=== PATIENT | female | born 1950 | race Caucasian/White ===

== ENCOUNTER 2017-06-18 13:15 | Emergency (ER) | payer MEDICARE ==
[2017-06-18] MEDS: NORCO, ANEXSIA 5/325MG TABLET (HYDROcodone/ACETAMINOPHEN) PO (13:59)
== END 2017-06-18 15:27 | disposition home or self-care (01) ==
LOC: M ED 13:15
DX: S49.001A Unspecified physeal fracture of upper end of humerus, right arm, initial encounter for closed fracture (principal); W19.XXXA Unspecified fall, initial encounter; Y92.89 Other specified places as the place of occurrence of the external cause; J44.9 Chronic obstructive pulmonary disease, unspecified; E03.9 Hypothyroidism, unspecified; F41.9 Anxiety disorder, unspecified; F33.9 Major depressive disorder, recurrent, unspecified; F43.10 Post-traumatic stress disorder, unspecified; J38.00 Paralysis of vocal cords and larynx, unspecified; Z87.820 Personal history of traumatic brain injury; Z88.0 Allergy status to penicillin
CPT/HCPCS: 73060

== ENCOUNTER → 2017-08-07 | Outpatient (REF) | payer MEDICARE, MEDICAID ==
[2017-08-07 14:08] LABS: HEMOGLOBIN 14.2 g/dl (12.0-15.5); MEAN CORPUSCULAR HEMOGLOBIN 31.9 pg (27.0-33.0); MEAN CORPUSCULAR VOLUME 96.6 fl (80.0-96.0); PLATELET COUNT, AUTOMATED 237 10^3/uL (150-450); RED BLOOD COUNT 4.45 10^6/uL (4.00-5.40); RED CELL DISTRIBUTION WIDTH 12.5 % (11.5-14.5)
[2017-08-07 14:44] LABS: ALBUMIN 4.3 GM/DL (3.2-5.2); ALBUMIN/GLOBULIN RATIO 1.23 (1.00-1.93); ALKALINE PHOSPHATASE 105 U/L (45-117); ALT/SGPT 25 U/L (12-78); ANION GAP 10 MEQ/L (8-16); AST/SGOT 16 U/L (7-37); BILIRUBIN,TOTAL 0.3 MG/DL (0.2-1.0); BLOOD UREA NITROGEN 14 MG/DL (7-18); CALCIUM LEVEL 9.3 MG/DL (8.8-10.2); CARBON DIOXIDE LEVEL 31 MEQ/L (21-32); CHLORIDE LEVEL 100 MEQ/L (98-107); CHOLESTEROL LEVEL 138 MG/DL (<200); CHOLESTEROL RISK RATIO 2.338 (<5); CREATININE FOR GFR 0.74 MG/DL (0.55-1.30); GLOMERULAR FILTRATION RATE > 60.0 (>45); GLUCOSE, FASTING 91 MG/DL (70-100); HDL CHOLESTEROL 59 MG/DL (>40); LDL CHOLESTEROL 47.2 MG/DL (<100); NON-HDL-C 79 MG/DL; POTASSIUM SERUM 4.4 MEQ/L (3.5-5.1); SODIUM LEVEL 141 MEQ/L (136-145); TOTAL PROTEIN 7.8 GM/DL (6.4-8.2); TRIGLYCERIDES LEVEL 159 MG/DL (<150)
== END ==
LOC: M SFHCPLAZ 10:36
DX: Z00.00 Encounter for general adult medical examination without abnormal findings (principal); E89.0 Postprocedural hypothyroidism
CPT/HCPCS: 84443

== ENCOUNTER 2018-01-23 23:46 | Emergency (ER) | payer MEDICARE, MEDICAID ==
[2018-01-24] MEDS: NS 1,000 ML IV (00:28)
[2018-01-24 00:42] LABS: ANION GAP 13 MEQ/L (8-16); BLOOD UREA NITROGEN 9 MG/DL (7-18); CALCIUM LEVEL 8.4 MG/DL (8.8-10.2); CARBON DIOXIDE LEVEL 24 MEQ/L (21-32); CHLORIDE LEVEL 110 MEQ/L (98-107); CREATININE FOR GFR 0.88 MG/DL (0.55-1.30); ETHYL ALCOHOL (ETHANOL) 0.277 % (0.000-0.010); GLOMERULAR FILTRATION RATE > 60.0 (>45); GLUCOSE, FASTING 83 MG/DL (70-100); POTASSIUM SERUM 3.6 MEQ/L (3.5-5.1); SODIUM LEVEL 147 MEQ/L (136-145)
[2018-01-24 00:46] LABS: BASO % 0.5 % (0.0-1.0); EOS # 0.2 10^3/uL (0.0-0.50); EOS % 2.8 % (0.0-3.0); HEMATOCRIT 41.7 % (36.0-47.0); HEMOGLOBIN 13.6 g/dl (12.0-15.5); IMMATURE GRANULOCYTE % 0.8 % (0-3.0); LYMPH # 2.7 10^3/uL (1.5-4.5); LYMPH % 44.8 % (24.0-44.0); MEAN CORPUSCULAR HEMOGLOBIN 30.4 pg (27.0-33.0); MEAN CORPUSCULAR HGB CONC 32.6 g/dl (32.0-36.5); MEAN CORPUSCULAR VOLUME 93.3 fl (80.0-96.0); MONO # 0.6 10^3/uL (0.0-0.8); MONO % 10.5 % (0.0-5.0); NEUTROPHILS # 2.4 10^3/uL (1.8-7.7); NEUTROPHILS % 40.6 % (36.0-66.0); PLATELET COUNT, AUTOMATED 264 10^3/uL (150-450); RED BLOOD COUNT 4.47 10^6/uL (4.00-5.40); RED CELL DISTRIBUTION WIDTH 13.2 % (11.5-14.5)
[2018-01-24 00:58] LABS: LACTIC ACID SEPSIS PROTOCOL 4.1 MMOL/L (0.4-2.0)
[2018-01-24 01:05] LABS: VENOUS BASE EXCESS -4.6 (-2.0-2.0); VENOUS HCO3 24.6 MEQ/L (23.0-27.0); VENOUS O2 SATURATION 54.5 % (60.0-80.0); VENOUS PARTIAL PRESSURE CO2 63.3 mmHg (38.0-50.0); VENOUS PARTIAL PRESSURE O2 36.1 mmHg (30.0-50.0); VENOUS PH 7.207 UNITS (7.330-7.430); VENOUS STANDARD HCO3 19.8 MEQ/L; VENOUS TOTAL CO2 26.5 MEQ/L (24.0-28.0)
[2018-01-24] MEDS: NS 500 ML IV (01:28)
[2018-01-24 03:51] LABS: VENOUS PARTIAL PRESSURE CO2 44.2 mmHg (38.0-50.0); VENOUS PH 7.304 UNITS (7.330-7.430); VENOUS TOTAL CO2 22.8 MEQ/L (24.0-28.0)
[2018-01-24 03:52] LABS: VENOUS BASE EXCESS -4.8 (-2.0-2.0); VENOUS HCO3 21.5 MEQ/L (23.0-27.0); VENOUS O2 SATURATION 97.9 % (60.0-80.0)
[2018-01-24 03:53] LABS: VENOUS STANDARD HCO3 20.5 MEQ/L
[2018-01-24 04:22] LABS: LACTIC ACID SEPSIS PROTOCOL 1.9 MMOL/L (0.4-2.0)
== END 2018-01-24 05:16 | disposition home or self-care (01) ==
LOC: M ED 23:46
DX: F10.129 Alcohol abuse with intoxication, unspecified (principal); R09.89 Other specified symptoms and signs involving the circulatory and respiratory systems; Z79.82 Long term (current) use of aspirin; Z79.899 Other long term (current) drug therapy; Z88.0 Allergy status to penicillin
CPT/HCPCS: 71045

== ENCOUNTER → 2018-02-07 | Outpatient (REF) | payer MEDICARE ==
[~2018-02-07] MED LIST: ASPI81TA85 PO; BIMA01SOL OU; CLON0.5T8 PO; FLUO10CA8 PO; HYDR12.55 PO; LEVO100T5 PO; NORCOTAB PO; REST30CA PO
== END ==
LOC: M SFHCPLAZ 14:10
PROVIDERS: ATTEND Nurse Practitioner Adult Health
DX: E89.0 Postprocedural hypothyroidism (principal)
CPT/HCPCS: 36415; 84443; G0463

== ENCOUNTER → 2018-09-19 | Outpatient (REF) | payer MEDICARE ==
[~2018-09-19] MED LIST changes: +CLON0.5T2 PO; -CLON0.5T8 PO; +FISH1000 PO; +FLUO10CA15 PO; -FLUO10CA8 PO; +HYDR-3715 PO; -NORCOTAB PO; +PANT40TA3 PO; +POTA10808 PO; +TIMO0.5S42 OU; +TRUS1SOL OU
== END ==
LOC: M SFHCPLAZ 14:15
PROVIDERS: ATTEND Nurse Practitioner Adult Health
DX: Z00.00 Encounter for general adult medical examination without abnormal findings (principal); E89.0 Postprocedural hypothyroidism; Z53.8 Procedure and treatment not carried out for other reasons

== ENCOUNTER 2018-11-07 09:38 | Day surgery (SDC) | payer MEDICARE ==
[~2018-11-07] VITALS: Ht 177.8 cm; Wt 58.1 kg
[~2018-11-07 09:38] MED LIST changes: -CLON0.5T2 PO; +CLON0.5T8 PO; -FLUO10CA15 PO; +FLUO10CA8 PO; +NS 1,000 ML IV ONE
[2018-11-07] MEDS ORDERED: LIDOCAINE 2% INJ 100 MG/5 ML SDV (FOR ANES.) As Ordered ONE (10:56)
[2018-11-07] MEDS ORDERED: fentaNYL 100 MCG/2 ML INJECTION (J3010) As Ordered ONE (10:56)
[2018-11-07] MEDS ORDERED: PROPOFOL 200 MG/20 ML VIAL As Ordered ONE (10:56)
[2018-11-07] MEDS ORDERED: ePHEDrine SULFATE 25 MG/5 ML(5MG/ML) SYRINGE As Ordered ONE (11:33)
--- NOTE | 2018-11-07 11:40 | ROOR ---
Patient Name: Jared Meza Procedure Date: 11/07/2018 10:53 AM Date of : 1950 Age: 67 Room: [facility] Gender: Female Note Status: Finalized Procedure: Upper GI endoscopy Indications: Suspected esophageal reflux, Follow-up of esophageal reflux, Suspected gastro-esophageal reflux disease Providers: DO Ivett Claudio MD: Brittani WARD NP Requesting Provider: Medicines: Propofol per Anesthesia Complications: No immediate complications. Procedure: Pre-Anesthesia Assessment: - Prior to the procedure, a History and Physical was performed, and patient medications and allergies were reviewed. The patient is competent. The risks and benefits of the procedure and the sedation options and risks were discussed with the patient. All questions were answered and informed consent was obtained. Patient identification and proposed procedure were verified by the physician, the nurse, the anesthesiologist and the vein access technician in the endoscopy suite. Mental Status Examination: alert and oriented. Airway Examination: normal oropharyngeal airway and neck mobility. Respiratory Examination: clear to auscultation. CV Examination: normal. Prophylactic Antibiotics: The patient does not require prophylactic antibiotics. Prior Anticoagulants: The patient has taken no previous anticoagulant or antiplatelet agents. ASA Grade Assessment: II - A patient with mild systemic disease. After reviewing the risks and benefits, the patient was deemed in satisfactory condition to undergo the procedure. The anesthesia plan was to use monitored anesthesia care (MAC). Immediately prior to administration of medications, the patient was re-assessed for adequacy to receive sedatives. The heart rate, respiratory rate, oxygen saturations, blood pressure, adequacy of pulmonary ventilation, and response to care were monitored throughout the procedure. The physical status of the patient was re-assessed after the procedure. The Endoscope was introduced through the mouth, and advanced to the third part of duodenum. The upper GI endoscopy was accomplished without difficulty. The patient tolerated the procedure well. Findings: The esophagus was normal. The stomach was normal. The examined duodenum was normal. Biopsy with a cold forceps in the prepyloric region of the stomach was performed for Helicobacter pylori testing. Impression: - Normal esophagus. - Normal stomach. - Normal examined duodenum. Recommendation: - Patient has a contact number available for emergencies. The signs and symptoms of potential delayed complications were discussed with the patient. Return to normal activities tomorrow. Written discharge instructions were provided to the patient. - Telephone my office for pathology results in 1 week. Keith Lee DO 11/07/2018 11:40:05 AM Electronically signed by Keith Lee DO Number of Addenda: 0 Note Initiated On: 11/07/2018 10:53 AM Estimated Blood Loss: Estimated blood loss was minimal. Estimated blood loss was minimal.
--- NOTE | 2018-11-07 11:43 | ROOR ---
Patient Name: Jared Meza Procedure Date: 11/07/2018 10:54 AM Date of : 1950 Age: 67 Room: [facility] Gender: Female Note Status: Finalized Procedure: Colonoscopy Indications: Screening for colorectal malignant neoplasm Providers: DO Ivett Claudio MD: Brittani WARD NP Requesting Provider: Medicines: Propofol per Anesthesia Complications: No immediate complications. Procedure: Pre-Anesthesia Assessment: - Prior to the procedure, a History and Physical was performed, and patient medications and allergies were reviewed. The patient is competent. The risks and benefits of the procedure and the sedation options and risks were discussed with the patient. All questions were answered and informed consent was obtained. Patient identification and proposed procedure were verified by the physician, the nurse, the anesthesiologist and the hydro plant technician in the endoscopy suite. Mental Status Examination: alert and oriented. Airway Examination: normal oropharyngeal airway and neck mobility. Respiratory Examination: clear to auscultation. CV Examination: normal. Prophylactic Antibiotics: The patient does not require prophylactic antibiotics. Prior Anticoagulants: The patient has taken no previous anticoagulant or antiplatelet agents. ASA Grade Assessment: II - A patient with mild systemic disease. After reviewing the risks and benefits, the patient was deemed in satisfactory condition to undergo the procedure. The anesthesia plan was to use monitored anesthesia care (MAC). Immediately prior to administration of medications, the patient was re-assessed for adequacy to receive sedatives. The heart rate, respiratory rate, oxygen saturations, blood pressure, adequacy of pulmonary ventilation, and response to care were monitored throughout the procedure. The physical status of the patient was re-assessed after the procedure. The Colonoscope was introduced through the anus and advanced to the cecum, identified by appendiceal orifice and ileocecal valve. The colonoscopy was performed without difficulty. The patient tolerated the procedure well. Findings: Non-bleeding internal hemorrhoids were found during retroflexion. The hemorrhoids were Grade II (internal hemorrhoids that prolapse but reduce spontaneously). A few small-mouthed diverticula were found in the sigmoid colon. Multiple carpet-like polyps were found in the transverse colon, ascending colon and cecum. The polyps were 3 to 15 mm in size. These polyps were removed with a cold biopsy forceps. Resection was complete, and retrieval was complete. Estimated blood loss was minimal. The exam was otherwise without abnormality on direct and retroflexion views. Impression: - Non-bleeding internal hemorrhoids. - Diverticulosis in the sigmoid colon. - Multiple 3 to 15 mm polyps in the transverse colon, in the ascending colon and in the cecum, removed with a cold biopsy forceps. Resected and retrieved. - The examination was otherwise normal on direct and retroflexion views. Recommendation: - Patient has a contact number available for emergencies. The signs and symptoms of potential delayed complications were discussed with the patient. Return to normal activities tomorrow. Written discharge instructions were provided to the patient. - Repeat colonoscopy in 1 year for surveillance based on pathology results. - Return to my office as previously scheduled. Keith Lee DO 11/07/2018 11:42:57 AM Electronically signed by Keith Lee DO Number of Addenda: 0 Note Initiated On: 11/07/2018 10:54 AM Estimated Blood Loss: Estimated blood loss was minimal.
[2018-11-07 12:14] VITALS: BP 107/57
== END 2018-11-07 12:16 | disposition home or self-care (01) ==
LOC: M OPP 09:38
PROVIDERS: ATTEND Surgery
DX: Z12.11 Encounter for screening for malignant neoplasm of colon (principal); K64.1 Second degree hemorrhoids; K57.30 Diverticulosis of large intestine without perforation or abscess without bleeding; D12.3 Benign neoplasm of transverse colon; D12.2 Benign neoplasm of ascending colon; D12.0 Benign neoplasm of cecum; K29.70 Gastritis, unspecified, without bleeding; K21.9 Gastro-esophageal reflux disease without esophagitis; I10 Essential (primary) hypertension; E03.9 Hypothyroidism, unspecified; K80.20 Calculus of gallbladder without cholecystitis without obstruction; F41.9 Anxiety disorder, unspecified; F32.9 Major depressive disorder, single episode, unspecified; F43.10 Post-traumatic stress disorder, unspecified; Z78.0 Asymptomatic menopausal state; J44.9 Chronic obstructive pulmonary disease, unspecified; Z86.73 Personal history of transient ischemic attack (TIA), and cerebral infarction without residual deficits; Z87.891 Personal history of nicotine dependence; Z88.0 Allergy status to penicillin; Z79.82 Long term (current) use of aspirin; Z79.899 Other long term (current) drug therapy
CPT/HCPCS: 43239; 45380; 88305; J3010

== ENCOUNTER → 2019-08-28 | Outpatient (REF) | payer MEDICARE, MEDICAID ==
[~2019-08-28] MED LIST changes: +CLON0.5T2 PO; -CLON0.5T8 PO; +FLUO10CA15 PO; -FLUO10CA8 PO; -NS 1,000 ML IV ONE
[2019-08-28 13:54] LABS: ALT/SGPT 25 U/L (12-78); BILIRUBIN,TOTAL 0.5 MG/DL (0.2-1.0); BLOOD UREA NITROGEN 12 MG/DL (7-18); CALCIUM LEVEL 9.3 MG/DL (8.8-10.2); CARBON DIOXIDE LEVEL 33 MEQ/L (21-32); CHLORIDE LEVEL 103 MEQ/L (98-107); CHOLESTEROL LEVEL 177 MG/DL (<200); CHOLESTEROL RISK RATIO 2.492 (<5); CREATININE FOR GFR 0.84 MG/DL (0.55-1.30); GLOMERULAR FILTRATION RATE > 60.0 (>39); GLUCOSE, FASTING 75 MG/DL (70-100); HDL CHOLESTEROL 71 MG/DL (>40); LDL CHOLESTEROL 87 MG/DL (<100); NON-HDL-C 106 MG/DL; POTASSIUM SERUM 3.9 MEQ/L (3.5-5.1); SODIUM LEVEL 138 MEQ/L (136-145); THYROID STIMULATING HORMONE 0.052 uIU/ML (0.358-3.740); TOTAL PROTEIN 7.3 GM/DL (6.4-8.2); TRIGLYCERIDES LEVEL 95 MG/DL (<150)
== END ==
LOC: M SFHCPLAZ 09:29
PROVIDERS: ATTEND Nurse Practitioner Adult Health
DX: E89.0 Postprocedural hypothyroidism (principal); K21.9 Gastro-esophageal reflux disease without esophagitis; R05 Cough; Z11.59 Encounter for screening for other viral diseases; Z13.220 Encounter for screening for lipoid disorders
CPT/HCPCS: 36415; 80053; 80061; 84443; U0003

== ENCOUNTER 2019-10-17 03:01 | Emergency (ER) | payer MEDICAID, MEDICARE ==
[~2019-10-17] VITALS: Ht 177.8 cm; Wt 60.9 kg
[~2019-10-17 03:01] MED LIST changes: -ASPI81TA85 PO; +ASPI81TA86 PO; -FLUO10CA15 PO; +FLUO10CA16 PO; +PANT40TA29 PO; -PANT40TA3 PO
[2019-10-17 04:16] LABS: BASO % 0.4 % (0.0-1.0); EOS # 0.1 10^3/uL (0.0-0.5); EOS % 1.5 % (0.0-3.0); HEMATOCRIT 41.6 % (36.0-47.0); HEMOGLOBIN 13.6 g/dl (12.0-15.5); LYMPH # 1.1 10^3/uL (1.5-5.0); LYMPH % 14.3 % (24.0-44.0); MEAN CORPUSCULAR HEMOGLOBIN 29.8 pg (27.0-33.0); MEAN CORPUSCULAR HGB CONC 32.7 g/dl (32.0-36.5); MEAN CORPUSCULAR VOLUME 91.2 fl (80.0-96.0); MONO # 0.6 10^3/uL (0.0-0.8); MONO % 7.4 % (0.0-5.0); NEUTROPHILS # 5.9 10^3/uL (1.5-8.5); NEUTROPHILS % 76.1 % (36.0-66.0); PLATELET COUNT, AUTOMATED 235 10^3/uL (150-450); RED BLOOD COUNT 4.56 10^6/uL (4.00-5.40); WHITE BLOOD COUNT 7.8 10^3/uL (4.0-10.0)
[2019-10-17] MEDS ORDERED: ONDANSETRON 4MG/2ML VIAL As Ordered ONE (04:29)
[2019-10-17 04:33] LABS: ALBUMIN 3.5 GM/DL (3.2-5.2); ALT/SGPT 38 U/L (12-78); BILIRUBIN,DIRECT 0.5 MG/DL (0.0-0.2); BILIRUBIN,TOTAL 0.8 MG/DL (0.2-1.0); BLOOD UREA NITROGEN 7 MG/DL (7-18); CARBON DIOXIDE LEVEL 31 MEQ/L (21-32); CHLORIDE LEVEL 106 MEQ/L (98-107); CREATININE FOR GFR 0.88 MG/DL (0.55-1.30); GLOMERULAR FILTRATION RATE > 60.0 (>39); GLUCOSE, FASTING 95 MG/DL (70-100); LIPASE 123 U/L (73-393); POTASSIUM SERUM 3.6 MEQ/L (3.5-5.1); SODIUM LEVEL 140 MEQ/L (136-145); TOTAL PROTEIN 6.9 GM/DL (6.4-8.2)
[2019-10-17] MEDS ORDERED: ONDANSETRON 4MG/2ML VIAL IV ONE (05:00)
[2019-10-17] MEDS ORDERED: GI COCKTAIL 50ML BTL(HYOSCYAMINE/MAALOX/LIDOCAINE VISCOUS)(1:3:1) PO ONE (05:00)
[2019-10-17] MEDS ORDERED: PANTOPRAZOLE 40MG VIAL (C9113 PER 1) IV ONE (06:30)
[2019-10-17] MEDS: GASTROGRAFIN SOLUTION 30ML PO SCH ×2 (06:43→07:27)
[2019-10-17 07:48] LABS: ETHYL ALCOHOL (ETHANOL) < 0.003 % (0.000-0.010)
[2019-10-17] MEDS ORDERED: ISOVUE-370 76% 100ML VIAL As Ordered ONE (08:06)
--- NOTE | 2019-10-17 08:43 | REPVR ---
PROCEDURE INFORMATION: Exam: CT Abdomen And Pelvis With Contrast Exam date and time: 10/17/2019 5:29 AM Age: 68 years old Clinical indication: Abdominal pain; Additional info: Luq abd pain, vomiting TECHNIQUE: Imaging protocol: Computed tomography of the abdomen and pelvis with intravenous contrast. Radiation optimization: All CT scans at this facility use at least one of these dose optimization techniques: automated exposure control; mA and/or kV adjustment per patient size (includes targeted exams where dose is matched to clinical indication); or iterative reconstruction. Contrast material: ISOVUE 370; Contrast volume: 100 ml; Contrast route: INTRAVENOUS (IV); COMPARISON: No relevant prior studies available. FINDINGS: Coronary arteries: Moderate coronary artery calcification. Liver: Normal. No mass. Gallbladder and bile ducts: Gallbladder is dilated. Small gallstones in the gallbladder. Mild pericholecystic fluid. CBD measures 9 mm in diameter. Pancreas: Normal. No ductal dilation. Spleen: Normal. No splenomegaly. Adrenals: Normal. No mass. Kidneys and ureters: Normal. No hydronephrosis. Stomach and bowel: Moderate stool in the colon. No abnormal bowel dilatation. No abnormal bowel wall thickening. Negative for colonic diverticulitis. Appendix: Appendix is normal. Intraperitoneal space: Unremarkable. No free air. No significant fluid collection. Vasculature: Moderate atherosclerotic disease. No aortic aneurysm. Lymph nodes: Unremarkable. No enlarged lymph nodes. Bladder: Unremarkable as visualized. Reproductive: Uterus is normal. Bones/joints: Severe degenerative spine. No acute fracture. 6 mm anterolisthesis of L4-L5. Severe degenerative changes of the right hip. Mild degenerative change the left hip. Soft tissues: Unremarkable. IMPRESSION: 1. Findings suspicious for acute cholecystitis. 2. Dilated biliary ductal dilatation. 3. Additional findings as described. Electronically signed by: Vicky Carrington On 10/17/2019 08:42:38 AM
[2019-10-17] MEDS ORDERED: KETOROLAC 30 MG/ML 1ML VIAL IV ONE (10:15)
--- NOTE | 2019-10-17 11:17 | REPVR ---
PROCEDURE INFORMATION: Exam: CT Orbits Without Contrast Exam date and time: 10/17/2019 10:38 AM Age: 68 years old Clinical indication: Screening exam; R/O fb for mri; Additional info: Request of Dr. Nidia Lindo TECHNIQUE: Imaging protocol: Computed tomography images of the orbits without contrast. Radiation optimization: All CT scans at this facility use at least one of these dose optimization techniques: automated exposure control; mA and/or kV adjustment per patient size (includes targeted exams where dose is matched to clinical indication); or iterative reconstruction. COMPARISON: CT Head without contrast 01/24/2018 12:28 AM FINDINGS: Orbits: Examination reveals bilateral globes to be normal in size and morphology. The optic nerves are normal in thickness and symmetric bilaterally. The extraocular muscles are normal in thickness and signal intensity. The retroconal fat has a normal appearance. The lacrimal glands appear normal bilaterally. Sinuses: The visualized paranasal sinuses are clear. There are no air fluid levels to suggest acute sinusitis. Mastoid air cells: The visualized mastoid air cells are clear. Bones/joints: Examination again demonstrates a chronic healed fracture involving the inferior and lateral wall of the right orbit and the lateral wall of the right maxillary sinus with multiple tiny metallic fragments located superficial to the bone and none seen in the right orbit. These metallic fragments were also seen on the previous study of 2018. MRI can be obtained if there is a high clinical necessity with close observation and to STOP if there are symptoms heating or pain. No acute fracture or dislocation is seen. IMPRESSION: Examination again demonstrates a chronic healed fracture involving the inferior and lateral wall of the right orbit and the lateral wall of the right maxillary sinus with multiple tiny metallic fragments located superficial to the bone and none seen in the right orbit. These metallic fragments were also seen on the previous study of 2018. MRI can be obtained if there is a high clinical necessity with close observation and to STOP if there are symptoms of heating or pain. Impression. Electronically signed by: Arsh Browne On 10/17/2019 11:16:39 AM
[2019-10-17] MEDS ORDERED: NS 1,000 ML IV SCH (12:30)
[2019-10-17] MEDS ORDERED: CARA1TAB6 PO (13:17)
[2019-10-17 13:30] VITALS: BP 136/77
--- NOTE | 2019-10-18 13:39 | ED PDOC ---
Post-Departure Follow-Up jesse corrales faxed formal report ct of orbit for fu Jey Key MD Oct 18, 2019 13:39
--- NOTE | 2019-10-22 19:39 | ECGEPIP ---
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
[2019-10-24] MEDS ORDERED: OMEP1CAP73 PO (12:23)
== END 2019-10-17 14:57 | disposition home or self-care (01) ==
LOC: M ED 03:01
DX: K52.9 Noninfective gastroenteritis and colitis, unspecified (principal); K80.20 Calculus of gallbladder without cholecystitis without obstruction; I10 Essential (primary) hypertension; F43.10 Post-traumatic stress disorder, unspecified; H54.8 Legal blindness, as defined in USA; Z79.899 Other long term (current) drug therapy; Z88.0 Allergy status to penicillin
CPT/HCPCS: 70480; 74177; 80048; 80076; 83690; 85025; 93005; 96361; 96374; 96375; 99284; C9113; G0480; J1885; J2405; Q9963; Q9967

== ENCOUNTER → 2019-10-25 | Outpatient (CLI) | payer MEDICARE ==
[~2019-10-25] MED LIST changes: +CARA1TAB6 PO; +OMEP1CAP73 PO
== END ==
LOC: M LABSMTC 10:55
PROVIDERS: ATTEND Anesthesiology
DX: Z01.812 Encounter for preprocedural laboratory examination (principal); Z20.828 Contact with and (suspected) exposure to other viral communicable diseases
CPT/HCPCS: C9803; U0003

== ENCOUNTER 2019-10-30 09:43 | Day surgery (SDC) | payer MEDICARE ==
[~2019-10-30] VITALS: Ht 172.7 cm; Wt 60.8 kg
[2019-10-30] MEDS ORDERED: LIDOCAINE 2% 100MG/5ML SDV (FOR ANES.) As Ordered ONE (11:00)
[2019-10-30] MEDS ORDERED: propofoL 200 MG/20 ML VIAL As Ordered ONE (11:00)
[2019-10-30] MEDS ORDERED: fentaNYL 100 MCG/2 ML INJECTION (J3010) As Ordered ONE (11:05)
--- NOTE | 2019-10-30 12:05 | ROOR ---
Patient Name: Jared Meza Procedure Date: 10/30/2019 11:49 AM Date of : 1950 Age: 68 Room: [facility] Gender: Female Note Status: Finalized Procedure: Upper GI endoscopy Indications: Abdominal pain in the left upper quadrant Providers: Edwin Alaniz MD Referring MD: Brittani WARD NP Requesting Provider: Medicines: Monitored Anesthesia Care Complications: No immediate complications. Procedure: Pre-Anesthesia Assessment: - Prior to the procedure, a History and Physical was performed, and patient medications and allergies were reviewed. The patient is competent. The risks and benefits of the procedure and the sedation options and risks were discussed with the patient. All questions were answered and informed consent was obtained. Patient identification and proposed procedure were verified by the physician, the nurse and the procurement accountant in the endoscopy suite. Mental Status Examination: alert and oriented. Airway Examination: normal oropharyngeal airway and neck mobility. Respiratory Examination: clear to auscultation. CV Examination: normal. Prophylactic Antibiotics: The patient does not require prophylactic antibiotics. Prior Anticoagulants: The patient has taken no previous anticoagulant or antiplatelet agents. ASA Grade Assessment: II - A patient with mild systemic disease. After reviewing the risks and benefits, the patient was deemed in satisfactory condition to undergo the procedure. The anesthesia plan was to use monitored anesthesia care (MAC). Immediately prior to administration of medications, the patient was re-assessed for adequacy to receive sedatives. The heart rate, respiratory rate, oxygen saturations, blood pressure, adequacy of pulmonary ventilation, and response to care were monitored throughout the procedure. The physical status of the patient was re-assessed after the procedure. The Endoscope was introduced through the mouth, and advanced to the second part of duodenum. The upper GI endoscopy was accomplished without difficulty. The patient tolerated the procedure well. Findings: The examined esophagus was normal. The Z-line was regular and was found 37 cm from the incisors. Diffuse mildly erythematous mucosa without bleeding was found on the lesser curvature of the stomach. This was biopsied with a cold forceps for histology. Estimated blood loss was minimal. The duodenal bulb, first portion of the duodenum and second portion of the duodenum were normal. Impression: - Normal esophagus. - Z-line regular, 37 cm from the incisors. - Erythematous mucosa in the lesser curvature. Biopsied. - Normal duodenal bulb, first portion of the duodenum and second portion of the duodenum. Recommendation: - Discharge patient to home (ambulatory). - Return to my office in 2 weeks. - Continue present medications. Edwin Alaniz MD Edwin Alaniz MD 10/30/2019 12:05:24 PM Electronically signed by Edwin Alaniz MD Number of Addenda: 0 Note Initiated On: 10/30/2019 11:49 AM Estimated Blood Loss: Estimated blood loss was minimal.
[2019-10-30 12:26] VITALS: BP 158/80
== END 2019-10-30 12:27 | disposition home or self-care (01) ==
LOC: M OPP 09:43
PROVIDERS: ATTEND Surgery
DX: K31.89 Other diseases of stomach and duodenum (principal); R10.12 Left upper quadrant pain; R12 Heartburn; F17.290 Nicotine dependence, other tobacco product, uncomplicated; Z79.899 Other long term (current) drug therapy; Z88.0 Allergy status to penicillin
CPT/HCPCS: 43239; 88305; J3010

== ENCOUNTER → 2019-11-12 | Outpatient (CLI) | payer MEDICARE ==
--- NOTE | 2019-11-19 08:48 | REP ---
NUCLEAR GASTRIC EMPTYING SCAN HISTORY: Epigastric pain. FINDINGS: Following the oral administration of 1.06 mCi Technetium-99m sulfur colloid and two scrambled eggs and 6 ounces of water, multiple images of the upper abdomen are performed in the anterior and posterior projections for 90 minutes. At the end of 90 minutes, 22% of the ingested activity has emptied from the stomach. This yields a T1/2 of 191 minutes. This is above normal value of 90 minutes. IMPRESSION: T1/2 value of 191 minutes for gastric emptying indicates moderately delayed gastric emptying. MTDD
== END ==
LOC: M RAD 08:32
PROVIDERS: ATTEND Nurse Practitioner
DX: K30 Functional dyspepsia (principal)
CPT/HCPCS: 78264; A9541

== ENCOUNTER → 2020-05-21 | Outpatient (CLI) | payer MEDICARE, MEDICAID ==
--- NOTE | 2020-05-21 13:24 | REPPI ---
INDICATION: COUGH COMPARISON: 01/24/2018. TECHNIQUE: PA/Lateral FINDINGS: Lungs: Clear, no infiltrate. Heart: Normal in size. Mediastinum: There is calcification of the thoracic aorta. Pleural angles: Unremarkable.. Bones and soft tissues: There are mild degenerative changes of the spine without compression deformity. IMPRESSION: No acute pulmonary disease. <Electronically signed by Keith Lindo > 05/21/20 [id number]
== END ==
LOC: M PLAIMG 12:39
PROVIDERS: ATTEND Nurse Practitioner Adult Health
DX: R05 Cough (principal)

== ENCOUNTER → 2020-12-18 | Outpatient (CLI) | payer MEDICARE, MEDICAID ==
[~2020-12-18] MED LIST changes: +D 1010002 PO; +DOCU-153 PO; +FLUO20CA20 PO; +OMEP-221 PO; +POLYOPD OP; +RISATAB3 PO; +SUCR1TAB56 PO
== END ==
LOC: M LABSMTC 12:04
PROVIDERS: ATTEND Anesthesiology
DX: Z01.812 Encounter for preprocedural laboratory examination (principal); Z20.822 Contact with and (suspected) exposure to COVID-19

== ENCOUNTER 2020-12-23 09:04 | Day surgery (SDC) | payer MEDICAID, MEDICARE ==
[~2020-12-23] VITALS: Ht 170.2 cm; Wt 69.6 kg
[~2020-12-23 09:04] MED LIST changes: +NS 1,000 ML IV ONE
--- OUTSIDE RECORDS SUMMARY | 2020-12-23 09:12 | CCD | Continuity of Care Document ---
Author Author Jared ALANIZ MD Organization Unknown Address [address] [address] Phone [phone] Care Team Providers Care Air Brush Decorator Name Role Phone Aldo Brittani Euceda R.N. AUTM [phone] Problems Description No Information Available Social History Type Date Description Comments Sex Unknown ETOH Use Denies alcohol use Recreational Drug Use Denies Drug Use Tobacco Use Start: Unknown Using Electronic Cig. Allergies and adverse reactions Active Allergies Criticality Reaction | Severity Comments Date Penicillin Unable to assess criticality Hives, Vomiting 10/15/2018 Medications Active Medications SIG Qnty Indications Ordering Provide r Date Carafate 1gm Tablets o ne gm twice a day 60tabs Edwin Alaniz MD 11/20/[address] 1 by mouth twice a day 60caps Keith Lee DO 11/21/2018 Hydrochlorothiazide 12.5mg Tablets 1 by mouth every day Unknown Temazepam 30mg Capsules 1 po daily Unknown Clonazepam 0.5mg Tablets 2 po daily Unknown Levothyroxine Sodium 100mcg Tablet s 1 by mouth every day Unknown Lumigan 0.01% Solution daily Unknown Fluoxetine HCL (PMDD) 20mg Tablets 1 qd with 20 mg cap Unknown Co-Q 10 [place]-3 Fish Oil [place]-3 C apsules 4 tabs by mouth every day Unknown Meri-bid Probiotic Tablets 1 tab by mouth every day Unknown Vitamin D3 25mcg (1000 Ut) Tablets 1 by mouth every day Unknown Immunizations Description No Information Available Vital Signs Date Vital Result Comment 11/19/2020 2:45pm BP Systolic 129 mmHg BP Diastolic 79 mmHg Heart Rate 74 /min Body Temperature 96.4 F Height 67 inches 5'7" Weight 156.25 lb BMI (Body Mass Index) 24.5 kg/m2 [place] Body Weight 135 lb Weight 70.875 kg BSA (Body Surface Area) 1.82 m2 11/26/2019 1:00pm BP Systolic 161 mmHg BP Diastolic 92 mmHg Height 70 inches 5'10" Weight 138.50 lb BMI (Body Mass Index) 19.9 kg/m2 [place] Body Weight 150 lb Weight 62.824 kg BSA (Body Surface Area) 1.79 m2 Results Description No Information Available Procedures Date Code Description Status 11/19/2020 51609 Office/Outpatient Established Lo w MDM 20-29 Min Completed Medical Devices Description No Information Available Encounters Type Date Location Provider Dx Diagnosis Office Visit 11/19/2020 2:45p [facility] Beni Alaniz MD R10.12 Left upper quadrant pain K31.84 Gastroparesis K80.20 Calculus of gallbladder w/o cholecystitis w/o obstruction Z86.010 Personal history of colonic polyps Assessments Date Code Description Provider 11/19/2020 R10.12 Left upper quadrant pain Edwin Alaniz MD 11/19/2020 K31.84 Gastroparesis Edwin artis MD 11/19/2020 K80.20 Calculus of gallblad [place] without cholecystitis without obstruction Edwin Alaniz MD 11/19/2020 Z86.010 History of adenomatous polyp of colon Edwin Alaniz MD Plan of Treatment Future Appointment(s):* 01/07/2021 1:30 pm - NESSA Castro at [facility] * 12/23/2020 11:30 am - Edwin Alaniz MD at [facility] 11/19/2020 - Edwin Alaniz MD* R10.12 Left upper quadrant pain* Comments: * Patient continues to complain of seems to be more associated more with bowel movements and then food intake. I told her that is most likely is not associated with the stones in her gallbladder. Possibly gas bloat type discomfort. Her description of her varying stools from constipation to diarrhea with associated pain and likewise I believe that while she was in the clinic she would remark that she just had another twinge or attack of pain on her left upper quadrant makes me think it is more like the irritable bowel type discomfort that she is reporting. * K31.84 Gastroparesis* Comments:* Some of her complaints of bloating, increased reflux mainly related to the gastroparesis that was evident on the gastric emptying study repeat last year. I discussed with her to try low fat diet, multiple small meals rather than big meals. She reports some improvement with a Carafate so I will represcribe Carafate and let her try this. * K80.20 Calculus of gallbladder without cholecystitis without obstruction* Comments:* She has a known history of cholelithiasis the issue is whether she is symptomatic with this. She is not really describing typical biliary colic type symptoms. She had a CT scan abdomen pelvis study done last year showing some possible evidence of chronic cholecystitis even though her symptoms are not typical. I told her I will try her first and Carafate and see if her symptoms improved to see if this is more the dyspepsia that she is noticing her gas bloat and if her symptoms do not improve with the Carafate, will consider repeating an ultrasound may be a HIDA scan and discuss with her cholecystectomy if she wishes studies are concordant with cholecystitis, biliary dysfunction. This may not fully resolve her symptoms that I told her. * Z86.010 History of adenomatous polyp of colon* Comments:* Patient brought up colonoscopy for surveillance. She was advised to have a repeat colonoscopy in 1 year after this was done in [address] Lee. She feels she is ready to have the colonoscopy done at this time. She had multiple (more than 10 polyps) removed during that time. All aware of small adenomatous, tubular adenomas. We will schedule her for colonoscopy.I reviewed with her how to do a split dose bowel prep.I discussed with the patient the details of the propos ed procedure, the benefits of performing the procedure, the most common risks on doing the procedure. This may include risks of worsening her abdominal discomfort, nausea, vomiting with bowel prep as well as dehydration; particular risk for the colonoscopy including bleeding, perforation which may require emergent surgery. Patient gave her consent to proceed. Functional Status Description No Information Available Mental Status Description No Information Available Referrals Description No Information Available
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
--- OUTSIDE RECORDS SUMMARY | 2020-12-23 09:12 | CCD ---
Continuity of Care Document (CCD) Created on: 11/19/2020 Jared Meza External Reference #: [id number] : 1950 Sex: Female Author Author Jared ALANIZ MD Organization Unknown Address [address] [facility] [address] [place] [address] Phone [phone] Care Team Providers Care Oracle Pl Sql Developer Name Role Phone Aldo Brittani Euceda R.N. AUTM [phone] Problems Description No Information Available Social History Type Date Description Comments Sex Unknown ETOH Use Denies alcohol use Recreational Drug Use Denies Drug Use Tobacco Use Start: Unknown Using Electronic Cig. Allergies and adverse reactions Active Allergies Criticality Reaction | Severity Comments Date Penicillin Unable to assess criticality Hives, Vomiting 10/15/2018 Medications Active Medications SIG Qnty Indications Ordering Provide r Date Omeprazole 40mg Capsules DR 1 by mouth twice a day 60caps Keith Lee, DO 11/21/2018 Hydrochlorothiazide 12.5mg Tablets 1 by mouth every day Unknown Temazepam 30mg Capsules 1 po daily Unknown Clonazepam 0.5mg Tablets 2 po daily Unknown Levothyroxine Sodium 100mcg Tablet s 1 by mouth every day Unknown Lumigan 0.01% Solution daily Unknown Fluoxetine HCL (PMDD) 20mg Tablets 1 qd with 20 mg cap Unknown Co-Q 10 [place]-3 Fish Oil [place]-3 C apsules 4 tabs by mouth every [...] lb BMI (Body Mass Index) 24.5 kg/m2 [place] Body Weight 135 lb Weight 70.875 kg BSA (Body Surface Area) 1.82 m2 11/26/2019 1:00pm BP Systolic 161 mmHg BP Diastolic 92 mmHg Height 70 inches 5'10" Weight 138.50 lb BMI (Body Mass Index) 19.9 kg/m2 [place] Body Weight 150 lb Weight 62.824 kg BSA (Body Surface Area) 1.79 m2 Results Description No Information Available Procedures Description No Information Available Medical Devices Description No Information Available Encounters Description No Information Available Assessments Description No Information Available Plan of Treatment Future Appointment(s):* 01/07/2021 1:30 pm - NESSA Castro at [facility] * 12/23/2020 11:30 am - Edwin Alaniz MD at [facility] 11/26/2019 - Edwin Alaniz MD* R10.12 Left upper quadrant pain * K31.84 Gastroparesis* Comments:* Patient has minimal chronic gastritis to continue the omeprazole. She can continue the sucralfate on an as-needed basis. Her symptoms most likely from gastroparesis with the gastric emptying study showing moderate decrease in gastric emptying in her stomach. She feels moderately better just with the sucralfate and the omeprazole so I will not be adding Reglan for now though she may be a candidate for this during times of exacerbation. She was advised to avoid heavy meals, try small frequent meals especially the middle of the night, maintain an upright position up to 2-3 hours after dinner and avoid fatty meals at night to help with her gastroparesis. Concern not related to the stones in her gallbladder and so w e'll hold off on cholecystectomy unless we can prove that she is symptomatic from this.Follow-up as needed. Functional Status Description No Information Available Mental Status Description No Information Available Referrals Description No Information Available
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
--- OUTSIDE RECORDS SUMMARY | 2020-12-23 09:12 | CCD | Continuity of Care Document ---
Author Author Jared ALANIZ MD Organization Unknown Address [address] [facility] [address] [place] [address] Phone [phone] Care Team Providers Care Tile Layer Supervisor Name Role Phone Aldo Brittani Euceda R.N. AUTM [phone] Problems Description No Information Available Social History [...] with 20 mg cap Unknown Co-Q 10 [place]-3 Fish Oil [place]-3 C apsules 4 tabs by mouth every [...] lb BMI (Body Mass Index) 24.5 kg/m2 [place] Body Weight 135 lb Weight 70.875 kg BSA (Body Surface Area) 1.82 m2 11/26/2019 1:00pm BP Systolic 161 mmHg BP Diastolic 92 mmHg Height 70 inches 5'10" Weight 138.50 lb BMI (Body Mass Index) 19.9 kg/m2 [place] Body Weight 150 lb Weight 62.824 kg BSA (Body Surface Area) 1.79 m2 Results Description No Information Available Procedures Description No Information Available Medical Devices Description No Information Available Encounters Description No Information Available Assessments Description No Information Available Plan of Treatment Future Appointment(s):* 01/07/2021 1:30 pm - NESSA Castro at [facility] * 12/23/2020 11:30 am - Edwin Alaniz MD at [facility] 11/26/2019 - Edwin Alaniz MD* R10.12 [...]
--- OUTSIDE RECORDS SUMMARY | 2020-12-23 09:12 | CCD | Continuity of Care Document ---
Author Author Jared ALANIZ MD Organization Unknown Address [address] [facility] [address] [place] [address] Phone [phone] Care Team Providers Care Brick Unloader Tender Name Role Phone Aldo Brittani Euceda R.N. AUTM [phone] Problems Description No Information Available Social History [...] with 20 mg cap Unknown Co-Q 10 [place]-3 Fish Oil [place]-3 C apsules 4 tabs by mouth every [...] lb BMI (Body Mass Index) 24.5 kg/m2 [place] Body Weight 135 lb Weight 70.875 kg BSA (Body Surface Area) 1.82 m2 11/26/2019 1:00pm BP Systolic 161 mmHg BP Diastolic 92 mmHg Height 70 inches 5'10" Weight 138.50 lb BMI (Body Mass Index) 19.9 kg/m2 [place] Body Weight 150 lb Weight 62.824 kg BSA (Body Surface Area) 1.79 m2 Results Description No Information Available Procedures Description No Information Available Medical Devices Description No Information Available Encounters Description No Information Available Assessments Description No Information Available Plan of Treatment Future Appointment(s):* 01/07/2021 1:30 pm - NESSA Castro at [facility] * 12/23/2020 11:30 am - Edwin Alaniz MD at [facility] 11/26/2019 - Edwin Alaniz [...]
--- OUTSIDE RECORDS SUMMARY | 2020-12-23 09:12 | CCD ---
Author Author [facility] Syst ems Organization 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 Engineer Name Role Phone Ericka Ralph Unavailable PROBLEMS Type Condition ICD9-CM Code [id number] Code Onset Dates Condition S tatus W/U Status Risk SNOMED Code Notes Problem Insomnia, unspecified type G47.00 Active confirmed 922242108 Problem Decreased hearing of both ears H91.93 Active confir med 939844556 Problem PTSD (post-traumatic stress disorder) F43.10 Ac tive confirmed 14849854 Problem Glaucoma of both eyes, unspecified glaucoma type H 40.9 Active confirmed 30735548 Problem Aphakia of right eye H27.01 Active confirmed 23310986 Problem Biliary colic K80.50 Active confirmed 896542 05 Problem Gastroesophageal reflux disease without esophagitis K21.9 Active confirmed 191805728 Problem Delayed gastric emptying K30 Active confirmed 255325775 Problem Postoperative hypothyroidism E89.0 Active confirme d 12670687 Problem Primary open angle glaucoma (POAG) of both eyes, severe stage H40.1133 Active confirmed 64957252 Problem Electronic cigarette use Z78.9 Active confirmed 648167492 Problem Alcoholic intoxication without complication F10.92 0 Active confirmed 99813467 Problem Chronic cholecystitis K81.1 Active confirmed 63788115 ALLERGIES Allergen (clinical drug ingredient) Drug/Non Drug Allergy do cumented on EMR Reaction Allergy Type Onset Date Status Penicillin (For Allergies Use Only) Nausea/Vomiting Drug A llergy Active ENCOUNTERS from 1950 to 2020-10-23 Encounter Location Date Provider Diagnosis [address] [phone] [place] [address] Oct, Ericka Ralph PTSD (post-traumatic stress disorder) F43.10 IMMUNIZATIONS Vaccine [...] Education Language: Question Answer Notes Languages spoken: German Jehovah'S Witness: Question Answer Notes Jehovah'S Witness 24 Advent Sexual Hx: Question Answer Notes Had sex [...] Notes Start Da te End Date Status Levothyroxine Sodium 100 MCG 1 tablet on an empty stom ach in the morning Orally Once a day for 90 days Active Nicoderm CQ 21 MG/24HR 1 patch to skin Transdermal Once a day fo r 30 day(s) Mar, Active FLUoxetine HCl 20 MG 1 capsule in the morning Ora lly Once a day/ to take with 10 mgs for 90 days Not-Taking Temazepam 30 MG 1 tab Orally/[id number] befor e bedtime prn insonmia mdd1 for 30 day(s) Oct, Active Loratadine 10 MG 1 tablet Orally Once a day for 90 days Mar, Not-Taking Meri-Bid Probiotic - TAKE ONE TABLET BY MOUTH EVERY DAY for 90 Active Timolol Maleate 0.5 % 1 drop into affected eye Ophthalmic Twice a day Active Dry Eyes ointment eyes at bedtime Active Dorzolamide HCl 2 % 1 drop into affected eye Ophthalmic twice daily Active Omeprazole 40 MG TAKE ONE CAPSULE BY MOUTH EV PELON DAY 30 MINUTES BEFORE MORNING MEAL for 90 Active May Use - Digest Ish 1 capsule orally Daily Active predniSONE 10 MG 1 tablet Orally as directed 3 tabs x 3 days 2 tabs x 3 days 1 tab x 3 days for 9 days Sep, Active Vitamin D 50 MCG (2000 UT) 1 tablet Orally Once a day Active [place] 3 1000 MG 4 capsules Orally Daily Active Bimatoprost 0.01 % 1 drop into affected eye in the evening Ophthalmic Once a day Active Probiotic - 1 capsule Orally Daily for 30 Days Active ProAir HFA 108 (90 Base) mcg/act 2 puffs as needed Inh alation qid prn for 30 days Active Diflucan 150 MG 1 tablet Orally as directed 1 today then repeat x 1 in 10 days for 2 days May, Not-Taking Clarithromycin 500 MG 1 tablet Orally bid for 10 day(s) May, Active Fluoxetine HCl 10 MG TAKE ONE CAPSULE BY MOUTH IN THE MORNING WITH 20MG CAPSULE for 90 Active clonazePAM 0.5 MG 1-2 tabs at bedtime [id number] Once a day, prn mdd2 for 30 days Oct, Active hydroCHLOROthiazide 12.5 MG 1 tablet in the morning Or ally Once a day for 90 days Active PROCEDURES No Information RESULTS No Results [...] Notes Treatment Notes Treatm ent Clinical Notes Oct, PTSD (post-traumatic stress disorder) (ICD-10 - F43.10) PLAN OF TREATMENT Medication Medication Name Sig Start Date Stop Date Omeprazole 40 MG TAKE ONE CAPSULE BY MOUTH EV PELON DAY 30 MINUTES BEFORE MORNING MEAL for 90 Fluoxetine HCl 10 MG TAKE ONE CAPSULE BY MOUTH EV PELON DAY IN THE MORNING WITH 20MG CAPSULE for 90 clonazePAM 0.5 MG 1-2 tabs at bedtime [id number] Once a day, prn mdd2 for 30 days Oct, Meri-Bid Probiotic - TAKE ONE TABLET BY MOUTH EVERY DAY for 90 Temazepam 30 MG 1 tab Orally/[id number] befor e bedtime prn insonmia mdd1 for 30 day(s) Oct, Probiotic - 1 capsule Orally Daily for 30 Days ProAir HFA 108 (90 Base) mcg/act 2 puffs as needed Inh alation qid prn for 30 days predniSONE 10 MG 1 tablet Orally as directed 3 tabs x 3 days 2 tabs x 3 days 1 tab x 3 days for 9 days Sep, Next Appt Details Provider Name:Brittani Carlson, 02:00:00 PM, [address] [facility], , [place], [address], Insurance Providers Payer Name Payer Address Payer Phone Insured Name Patient Relati onship to Insured Coverage Start Date Coverage End Date MEDICAID [employer] [address] [facility] [address] [place] self MEDICARE BLUE PPO [phone] [address] [place]
--- OUTSIDE RECORDS SUMMARY | 2020-12-23 09:12 | CCD ---
Author Author [facility] Syst ems Organization [facility] ems Address Unknown Phone Unavailable Care Team Providers Care Manager [place] Name Role Phone Brittani Carlson Unavailable PROBLEMS Type Condition ICD9-CM Code [id number] Code Onset Dates Condition S tatus W/U Status Risk SNOMED Code Notes Problem Insomnia, unspecified type G47.00 Active confirmed 581948840 Problem Decreased hearing of both ears H91.93 Active confir med 001434003 Problem PTSD (post-traumatic stress disorder) F43.10 Ac tive confirmed 66467236 Problem Glaucoma of both eyes, unspecified glaucoma type H 40.9 Active confirmed 58149436 Problem Aphakia of right eye H27.01 Active confirmed 15022319 Problem Biliary colic K80.50 Active confirmed 276441 05 Problem Gastroesophageal reflux disease without esophagitis K21.9 Active confirmed 113493555 Problem Delayed gastric emptying K30 Active confirmed 958750386 Problem Postoperative hypothyroidism E89.0 Active confirme d 39572196 Problem Primary open angle glaucoma (POAG) of both eyes, severe stage H40.1133 Active confirmed 02458678 Problem Electronic cigarette use Z78.9 Active confirmed 102962471 Problem Alcoholic intoxication without complication F10.92 0 Active confirmed 01169816 Problem Chronic cholecystitis K81.1 Active confirmed 04300991 ALLERGIES Allergen (clinical drug ingredient) Drug/Non Drug Allergy do cumented on EMR Reaction Allergy Type Onset Date Status Penicillin (For Allergies Use Only) Nausea/Vomiting Drug A llergy Active ENCOUNTERS from 1948 to 2020-11-20 Encounter Location Date Provider Diagnosis [address] [phone] [place] [address] Nov, Brittani Servage PTSD (post-traumatic stress disorder) [...] Education Language: Question Answer Notes Languages spoken: Setswana Sikhism: Question Answer Notes Sikhism 24 Alevism Sexual Hx: Question Answer Notes Had sex [...] a day for 90 days Mar, Not-Taking Temazepam 30 MG 1 tab Orally/[id number] befor e bedtime prn insonmia mdd1 for 30 day(s) Oct, Active Levothyroxine Sodium 100 MCG 1 tablet [...] 10 MG TAKE ONE CAPSULE BY MOUTH PELON DAY IN THE MORNING WITH 20MG CAPSULE orally [...] capsule Orally Daily for 30 Days Active May Use - Digest Ish 1 capsule orally Daily Active Diflucan 150 MG 1 tablet Orally as directed 1 today then repeat x 1 in 10 days for 2 days May, Not-Taking Clarithromycin 500 MG 1 tablet Orally bid for 10 day(s) May, Active Omeprazole 40 MG TAKE ONE CAPSULE BY MOUTH PELON DAY 30 MINUTES BEFORE MORNING MEAL for 90 Active clonazePAM 0.5 MG 1-2 tabs at bedtime [id number] Once a day, prn mdd2 for 30 days Oct, Active [place] 3 1000 MG 4 capsules Orally Daily Active PROCEDURES No Information RESULTS No Results REASON FOR VISIT problems with medication MEDICAL (GENERAL) HISTORY Type Description Date Medical [...] 30 MINUTES BEFORE MORNING MEAL for 90 clonazePAM 0.5 MG 1-2 tabs at bedtime [id number] Once a day, prn mdd2 for 30 days Oct, Meri-Bid Probiotic - TAKE ONE TABLET BY MOUTH EVERY DAY for 90 ProAir HFA 108 (90 Base) mcg/act 2 puffs as needed Inh alation qid prn for 30 days Temazepam 30 MG 1 tab Orally/[id number] befor e bedtime prn insonmia mdd1 for 30 day(s) Oct, Probiotic - 1 capsule Orally Daily for 30 Days predniSONE 10 MG 1 tablet Orally as directed 3 tabs x 3 days 2 tabs x 3 days 1 tab x 3 days for 9 days Sep, Fluoxetine HCl 10 MG TAKE ONE CAPSULE BY MOUTH IN THE MORNING WITH 20MG CAPSULE orally Daily c 20mg for 90 days Next Appt Details Provider Name:Brittani Ok Carlson, 02:00:00 PM, [address] [facility], , [place], [address], Insurance Providers Payer Name Payer Address Payer Phone Insured Name Patient Relati onship to Insured Coverage Start Date Coverage End Date MEDICAID [employer] [address] [facility] [id number] [place] MEDICARE BLUE PPO [id number] [facility] BLUE [address]OSS [address] [facility] [id number] [place] self
--- OUTSIDE RECORDS SUMMARY | 2020-12-23 09:13 | CCD ---
Author Author [facility] Organization [facility] Address Unknown Phone Unavailable Care Team Providers Care Wad Lubricator Name Role Phone Servage, L Brittani WIRELESS STORE MANAGER Unavailable Unavailable Servage, L Brittani WIRELESS STORE MANAGER Unavailable Unavailable Servage, L Brittani WIRELESS STORE MANAGER Unavailable Unavailable Servage, L Brittani WIRELESS STORE MANAGER Unavailable Unavailable Servage, L Brittani WIRELESS STORE MANAGER Unavailable Unavailable Servage, L Brittani WIRELESS STORE MANAGER Unavailable Unavailable Servage, L Brittani WIRELESS STORE MANAGER Unavailable Unavailable Servage, L Brittani WIRELESS STORE MANAGER Unavailable Unavailable Servage, L Brittani WIRELESS STORE MANAGER Unavailable Unavailable Servage, L Brittani WIRELESS STORE MANAGER Unavailable Unavailable Servage, L Brittani WIRELESS STORE MANAGER Unavailable Unavailable Servage, L Brittani WIRELESS STORE MANAGER Unavailable Unavailable Servage, L Brittani WIRELESS STORE MANAGER Unavailable Unavailable Servage, L Brittani WIRELESS STORE MANAGER Unavailable Unavailable Servage, L Brittani WIRELESS STORE MANAGER Unavailable Unavailable Servage, L Brittani WIRELESS STORE MANAGER Unavailable Unavailable Servage, L Brittani WIRELESS STORE MANAGER Unavailable Unavailable Servage, L Brittani WIRELESS STORE MANAGER Unavailable Unavailable Servage, L Brittani WIRELESS STORE MANAGER Unavailable Unavailable Servage, L Brittani WIRELESS STORE MANAGER Unavailable Unavailable Servage, L Brittani WIRELESS STORE MANAGER Unavailable Unavailable Servage, L Brittani WIRELESS STORE MANAGER Unavailable Unavailable Servage, L Brittani WIRELESS STORE MANAGER Unavailable Unavailable Servage, L Brittani WIRELESS STORE MANAGER Unavailable Unavailable Servage, L Brittani WIRELESS STORE MANAGER Unavailable Unavailable Servage, L Brittani WIRELESS STORE MANAGER Unavailable Unavailable Servage, L Brittani WIRELESS STORE MANAGER Unavailable Unavailable Servage, L Brittani WIRELESS STORE MANAGER Unavailable Unavailable Servage, L Brittani WIRELESS STORE MANAGER Unavailable Unavailable Servage, L Brittani WIRELESS STORE MANAGER Unavailable Unavailable Servage, L Brittani WIRELESS STORE MANAGER Unavailable Unavailable Servage, L Brittani WIRELESS STORE MANAGER Unavailable Unavailable Servage, L Brittani WIRELESS STORE MANAGER Unavailable Unavailable Servage, L Brittani WIRELESS STORE MANAGER Unavailable Unavailable Servage, L Brittani WIRELESS STORE MANAGER Unavailable Unavailable Servage, L Brittani WIRELESS STORE MANAGER Unavailable Unavailable Servage, L Brittani WIRELESS STORE MANAGER Unavailable Unavailable Servage, L Brittani WIRELESS STORE MANAGER Unavailable Unavailable Servage, L Brittani WIRELESS STORE MANAGER Unavailable Unavailable Servage, L Brittani WIRELESS STORE MANAGER Unavailable Unavailable Servage, L Brittani WIRELESS STORE MANAGER Unavailable Unavailable Servage, L Brittani WIRELESS STORE MANAGER Unavailable Unavailable Servage, L Brittani WIRELESS STORE MANAGER Unavailable Unavailable Servage, L Brittani WIRELESS STORE MANAGER Unavailable Unavailable Servage, L Brittani WIRELESS STORE MANAGER Unavailable Unavailable Servage, L Brittani WIRELESS STORE MANAGER Unavailable Unavailable Servage, L Brittani WIRELESS STORE MANAGER Unavailable Unavailable Servage, L Brittani WIRELESS STORE MANAGER Unavailable Unavailable Servage, L Brittani WIRELESS STORE MANAGER Unavailable Unavailable Servage, L Brittani WIRELESS STORE MANAGER Unavailable Unavailable Servage, L Brittani WIRELESS STORE MANAGER Unavailable Unavailable Servage, L Brittani WIRELESS STORE MANAGER Unavailable Unavailable Servage, L Brittani WIRELESS STORE MANAGER Unavailable Unavailable Servage, L Brittani WIRELESS STORE MANAGER Unavailable Unavailable Servage, L Brittani WIRELESS STORE MANAGER Unavailable Unavailable Servage, L Brittani WIRELESS STORE MANAGER Unavailable Unavailable Servage, L Brittani WIRELESS STORE MANAGER Unavailable Unavailable Servage, L Brittani WIRELESS STORE MANAGER Unavailable Unavailable Servage, L Brittani WIRELESS STORE MANAGER Unavailable Unavailable Servage, L Brittani WIRELESS STORE MANAGER Unavailable Unavailable Servage, L Brittani WIRELESS STORE MANAGER Unavailable Unavailable Servage, L Brittani WIRELESS STORE MANAGER Unavailable Unavailable Servage, L Brittani WIRELESS STORE MANAGER Unavailable Unavailable Servage, L Brittani WIRELESS STORE MANAGER Unavailable Unavailable Servage, L Brittani WIRELESS STORE MANAGER Unavailable Unavailable BARAYUGA, Sander RAMIREZ MD Unavailable Unavailable BARAYUGA, Sander RAMIREZ MD Unavailable Unavailable BARAYUGA, Sander RAMIREZ MD Unavailable Unavailable BARAYUGA, Sander RAMIREZ MD Unavailable Unavailable BARAYUGA, Sander RAMIREZ MD Unavailable Unavailable BARAYUGA, Sander RAMIREZ MD Unavailable Unavailable BARAYUGA, Sander RAMIREZ MD Unavailable Unavailable BARAYUGA, Sander RAMIREZ MD Unavailable Unavailable BARAYUGA, Sander RAMIREZ MD Unavailable Unavailable BARAYUGA, Sander RAMIREZ MD Unavailable Unavailable BARAYUGA, Sander RAMIREZ MD Unavailable Unavailable BARAYUGA, Sander RAMIREZ MD Unavailable Unavailable BARAYUGA, Sander RAMIREZ MD Unavailable Unavailable BARAYUGA, B JAMES PERALTA Unavailable Unavailable BARAYUGA, Sander RAMIREZ MD Unavailable Unavailable BARAYUGA, Sander RAMIREZ MD Unavailable Unavailable BARAYUGA, Sander RAMIREZ MD Unavailable Unavailable BARAYUGA, Sander RAMIREZ MD Unavailable Unavailable BARAYUGA, Sander RAMIREZ MD Unavailable Unavailable BARAYUGA, Sander RAMIREZ MD Unavailable Unavailable BARAYUGA, Sander RAMIREZ MD Unavailable Unavailable BARAYUGA, Sander RAMIREZ MD Unavailable Unavailable BARAYUGA, Sander RAMIREZ MD Unavailable Unavailable BARAYUGA, Sander RAMIREZ MD Unavailable Unavailable BARAYUGA, Sander RAMIREZ MD Unavailable Unavailable BARAYUGA, Sander RAMIREZ MD Unavailable Unavailable BARAYUGA, Sander RAMIREZ MD Unavailable Unavailable BARAYUGA, Sander RAMIREZ MD Unavailable Unavailable BARAYUGA, Sander RAMIREZ MD Unavailable Unavailable BARAYUGA, Sander RAMIREZ MD Unavailable Unavailable BARAYUGA, Sander RAMIREZ MD Unavailable Unavailable BARAYUGA, Sander RAMIREZ MD Unavailable Unavailable BARAYUGA, Sander RAMIREZ MD Unavailable Unavailable BARAYUGA, Sander RAMIREZ MD Unavailable Unavailable BARAYUGA, Sander RAMIREZ MD Unavailable Unavailable Chance Chung MD Unavailable Unavailable Chance Chung MD Unavailable Unavailable Chance Chung MD Unavailable Unavailable Chance Chung MD Unavailable Unavailable Chance Chung MD Unavailable Unavailable Chance Chung MD Unavailable Unavailable Matilde HOUSTON MD Unavailable Unavailable Matilde HOUSTON MD Unavailable Unavailable Matilde HOUSTON MD Unavailable Unavailable Matilde HOUSTON MD Unavailable Unavailable Matilde HOUSTON MD Unavailable Unavailable Matilde HOUSTON MD Unavailable Unavailable CHANMatilde ORTEGA MD Unavailable Unavailable CHANMatilde ORTEGA MD Unavailable Unavailable CHANJORDAN C KENDRA PERALTA Unavailable Unavailable CHANLIGLENNA C KENDRA PERALTA Unavailable Unavailable CHANLIGLENNA C KENDRA PERALTA Unavailable Unavailable Re-disclosure Warning The records that you are about to access may contain information from federally-assisted alcohol or drug abuse programs. If such information is present, then the following federally mandated warning applies: This information has been disclosed to you from records protected by federal confidentiality rules (42 CFR part 2). The federal rules prohibit you from making any further disclosure of this information unless further disclosure is expressly permitted by the written consent of the person to whom it pertains or as otherwise permitted by 42 CFR part 2. A general authorization for the release of medical or other information is NOT sufficient for this purpose. The Federal rules restrict any use of the information to criminally investigate or prosecute any alcohol or drug abuse patient.The records that you are about to access may contain highly sensitive health information, the redisclosure of which is protected by Article 27-F of the [facility] Public Health law. If you continue you may have access to information: Regarding HIV / AIDS; Provided by facilities licensed or operated by the [facility] Office of Mental Health; or Provided by the [facility] Office for People With Developmental Disabilities. If such information is present, then the following [facility] mandated warning applies: This information has been disclosed to you from confidential records which are protected by state law. State law prohibits you from making any further disclosure of this information without the specific written consent of the person to whom it pertains, or as otherwise permitted by law. Any unauthorized further disclosure in violation of state law may result in a fine or custodial sentence or both. A general authorization for the release of medical or other information is NOT sufficient authorization for further disc losure. Allergies and Adverse Reactions Type Description Substance Reaction Status Data Source(s ) Drug allergy combigan combigan SWELLING,REDNESS [facility] Drug allergy PCN PCN [facility] Family History Family Member Name Family Member Gender Family Member Status Date o f Status Description Data Source(s) Unknown Male Problem MEDENT ([facility]) Encounters Encounter Providers Location Date Indications Data Source(s ) [place] [address] [facility] [facility] [address] 11/24/2020 12:00:00 AM EDT eCW1 ([facility]) [place] [address] [facility] [address] 11/20/2020 12:00:00 AM EDT eCW1 ([facility]) Outpatient Attender: JAMES Albert/Narciso/Ahmet/ José Miguel 11/19/2020 02:45:00 PM EDT MED[facility] ([facility]) [place] [address] [facility] [address] 10/21/2020 12:00:00 AM EDT eCW1 ([facility]) Office Visit, Est Pt., Level 3 PC [address] [place] [address] 09/23/2020 12:00:00 AM EDT eCW1 ([facility]) Emergency Attender: KENDRA HOUSTON MDConsultant: Isacc Carlson WIRELESS STORE MANAGER 09/17/2020 07:26:00 PM EDT - 09/17/2020 10:59:00 PM EDT [facility] Patient discharged. [place] [address] [facility] [address] 09/17/2020 12:00:00 AM EDT eCW1 ([facility]) [place] [address] [facility] [address] 09/17/2020 12:00:00 AM EDT eCW1 ([facility] [place] [address] [facility] [address] 08/24/2020 12:00:00 AM EDT [facility]CW1 [facility] [place] [address] [facility] [address] 07/22/2020 12:00:00 AM EDT eCW1 ([facility]) [place] [address] [facility] [address] 07/09/2020 12:00:00 AM EDT eCW1 ([facility]) [place] [address] [facility] [address] 07/01/2020 12:00:00 AM EDT eCW1 [facility] Emergency Attender: Chance Chung MDConsultant: Brittani Shankar 06/26/2020 11:49:00 AM EDT - 06/26/2020 01:43:00 PM EDT [facility] Patient discharged. Unknown [address] [facility] [address] 06/25/2020 12:00:00 AM EDT eCW1 ([facility]) [place] [address] [facility] [address] 06/16/2020 12:00:00 AM EDT eCW1 ([facility]) [place] [address] [facility] [address] 05/26/2020 12:00:00 AM EDT eCW1 ([facility]) [place] [address] [facility] [address] 05/25/2020 12:00:00 AM EDT eCW1 ([facility]) Outpatient [address] [facility] [address] 05/21/2020 12:00:00 AM EDT eCW1 ([facility]) [place] [address] [facility] [address] 05/19/2020 12:00:00 AM EDT eCW1 ([facility]) Unknown [address] [facility] [address] 04/23/2020 12:00:00 AM EDT eCW1 ([facility]) [place] [address] [facility] [address] 03/26/2020 12:00:00 AM EST eCW1 ([facility]) Office Visit, Est Pt., Level 3 PC [address] [place] [address] 03/17/2020 12:00:00 AM EST eCW1 ([facility]) Unknown [address] [facility] [address] 02/26/2020 12:00:00 AM EST eCW1 ([facility]) [place] [address] [facility] [address] 01/27/2020 12:00:00 AM EST eCW1 ([facility]) Unknown [address] [facility] [place] [address] 12/31/2019 12:00:00 AM EST eCW1 ([facility]) Unknown [address] [facility] [address] 12/23/2019 12:00:00 AM EST eCW1 ([facility]) Unknown [address] [facility] [address] 12/19/2019 12:00:00 AM EST eCW1 ([facility]) Unknown [address] [facility] [address] 12/04/2019 12:00:00 AM EDT eCW1 ([facility]) Immunizations Vaccine Date Status Description Data Source(s) COVID-19 VACCINE, [id number]-[id number], LNP-S (MODERNA)/PF 05/04/2020 1 2:00:00 AM EDT completed [facility] COVID-19 VACCINE Moderna 04/30/2020 12:00:00 AM EDT completed [facility] Vaccine Series Complete: NOThis Data was Submitted to [facility]. Medications Medication Brand Name Start Date Product Form Dose Route Admi nistrative Instructions Pharmacy Instructions Status Indications Reaction Description Data Source(s) SUPREP BOWEL PREP KIT 17.5-3.13-1.6 gram SODIUM, POTASSIUM,M AG SULFATES 12/09/2020 12:00:00 AM EDT recon soln 354 TAKE PER DOCTOR'S BOWEL PREP INSTRUCTIONS TAKE PER DOCTOR'S BOWEL PREP INSTRUCTIONS SOLD: 12/10/2020 [facility] Temazepam 30 MG Oral Capsule Temazepam 30 MG 11/24/2020 12:00:00 AM EDT active Temazepam 30 MG W1 ([facility]) 0.5 mg 11/24/2020 12:00:00 AM EDT tablet 60 TAKE ONE TO TWO TABLETS BY MOUTH AT BEDTIME NEEDED MAXIMUM DAILY DOSE = TWO TABLETS TAKE ONE TO TWO TABLETS BY MOUTH AT BEDTIME NEEDED MAXIMUM DAILY DOSE = TWO TABLETS SOLD: 11/24/2020 [facility] 30 mg 11/24/2020 12:00:00 AM EDT capsule 30 TAKE ONE CAPSULE BY MOUTH AT BEDTIME NEEDED FOR INSOMNIA MAXIMUM DAILY DOSE = ONE TAKE ONE CAPSULE BY MOUTH AT BEDTIME NEEDED FOR INSOMNIA MAXIMUM DAILY DOSE = ONE SOLD: 11/24/2020 [facility] Clonazepam 0.5 MG Oral Tablet clonazePAM 0.5 MG clonazePAM 0 .5 MG 11/24/2020 12:00:00 AM EDT active clonazeP AM 0.5 MG eCW1 ([facility]) 1 gram 11/22/2020 12:00:00 AM EDT tablet 60 TAKE ONE TABLET (1 GRAM) BY MOUTH TWO TIMES A DAY TAKE ONE TABLET (1 GRAM) BY MOUTH TWO TIMES A DAY SOLD : 11/22/2020 [facility] 20 mg 11/22/2020 12:00:00 AM EDT capsule 90 TAKE ONE CAPSULE BY MOUTH EVERY MORNING WITH 10MG TAKE ONE CAPSULE BY MOUTH EVERY MORNING WITH 10MG SOLD : 11/22/2020 [facility] Sucralfate 1000 MG Oral Tablet [Carafate] Carafate 11/20/2020 1 2:00:00 AM EDT active MEDENT ([facility] ) 0.5 mg 10/25/2020 12:00:00 AM EDT tablet 60 TAKE ONE TO TWO TABLETS BY MOUTH AT BEDTIME NEEDED MAXIMUM DAILY DOSE = 2 TAKE ONE TO TWO TABLETS BY MOUTH AT BEDTIME NEEDED MAXIMUM DAILY DOSE = 2 SOLD: 10/25/2020 [facility] 30 mg 10/24/2020 12:00:00 AM EDT capsule 30 TAKE ONE CAPSULE BY MOUTH AT BEDTIME NEEDED FOR INSOMNIA - MAXIMUM DAILY DOSE = 1 TAKE ONE CAPSULE BY MOUTH AT BEDTIME NEEDED FOR INSOMNIA - MAXIMUM DAILY DOSE = 1 SOLD: 10/25/2020 [facility] Temazepam 30 MG Oral Capsule Temazepam 30 MG 10/23/2020 12:00:00 AM EDT active Temazepam 30 MG eCW1 ([facility]) Temazepam 30 MG Oral Capsule Temazepam 30 MG 10/23/2020 12:00:00 AM EDT active Temazepam 30 MG eCW1 ([facility]) Clonazepam 0.5 MG Oral Tablet clonazePAM 0.5 MG clonazePAM 0 .5 MG 10/23/2020 12:00:00 AM EDT active clonazeP AM 0.5 MG eCW1 ([facility]) Clonazepam 0.5 MG Oral Tablet clonazePAM 0.5 MG clonazePAM 0 .5 MG 10/23/2020 12:00:00 AM EDT active clonazeP AM 0.5 MG eCW1 ([facility]) 1 billion cell- 250 mg 10/23/2020 12:00:00 AM EDT tablet 90 TAKE ONE TABLET BY MOUTH EVERY DAY TAKE ONE TABLET BY MOUTH EVERY DAY SOLD: 10/23/2020 [facility] 10 mg 10/01/2020 12:00:00 AM EDT capsule 90 TAKE ONE CAPSULE BY MOUTH EVERY MORNING WITH 20MG CAPSULE TAKE ONE CAPSULE BY MOUTH EVERY MORNING WITH 20MG CAPSULE SOLD: 10/01/2020 [facility] 40 mg 10/01/2020 12:00:00 AM EDT capsule,delayed release (DR/EC) 90 TAKE ONE CAPSULE BY MOUTH EVERY DAY 30 MINUTES BEFORE MORNING MEAL TAKE ONE CAPSULE BY MOUTH EVERY DAY 30 MINUTES BEFORE MORNING MEAL SOLD: 10/01/2020 [facility] 30 mg 09/24/2020 12:00:00 AM EDT capsule 30 TAKE ONE CAPSULE BY MOUTH EVERY DAY BEFORE BEDTIME NEEDED FOR INSOMNIA MAXIMUM DAILY DOSE = 1 TAKE ONE CAPSULE BY MOUTH EVERY DAY BEFORE BEDTIME NEEDED FOR INSOMNIA MAXIMUM DAILY DOSE = 1 SOLD: 09/24/2020 [facility] 0.5 mg 09/24/2020 12:00:00 AM EDT tablet 60 TAKE 1-2 TABLETS BY MOUTH AT BEDTIME NEEDED MAXIMUM DAILY DOSE = 2 TAKE 1-2 TABLETS BY MOUTH AT BEDTIME NEEDED MAXIMUM DAILY DOSE = 2 SOLD: 09/24/2020 [facility] 10 mg 09/23/2020 12:00:00 AM EDT tablet 18 TAKE 3 TABLETS BY MOUTH EVERY DAY FOR 3 DAYS ,THEN TAKE 2 TABLETS BY MOUTH EVERY DAY FOR 3 DAYS ,THEN TAKE 1 TABLET BY MOUTH EVERY DAY FOR 3 DAYS TAKE 3 TABLETS BY MOUTH EVERY DAY FOR 3 DAYS ,THEN TAKE 2 TABLETS BY MOUTH EVERY DAY FOR 3 DAYS ,THEN TAKE 1 TABLET BY MOUTH EVERY DAY FOR 3 DAYS SOLD: 09/23/2020 [facility] Prednisone 10 MG Oral Tablet predniSONE 10 MG predniSONE 10 MG 09/23/2020 12:00:00 AM EDT 1.0 {tablet} active pr edniSONE 10 MG eCW1 ([facility]) Prednisone 10 MG Oral Tablet predniSONE 10 MG predniSONE 10 MG 09/23/2020 12:00:00 AM EDT 1.0 {tablet} active pr edniSONE 10 MG eCW1 ([facility]) Clonazepam 0.5 MG Oral Tablet clonazePAM 0.5 MG clonazePAM 0 .5 MG 09/23/2020 12:00:00 AM EDT active clonazeP AM 0.5 MG eCW1 ([facility]) Prednisone 10 MG Oral Tablet predniSONE 10 MG predniSONE 10 MG 09/23/2020 12:00:00 AM EDT 1.0 {tablet} active pr edniSONE 10 MG eCW1 ([facility]) Prednisone 10 MG Oral Tablet predniSONE 10 MG predniSONE 10 MG 09/23/2020 12:00:00 AM EDT 1.0 {tablet} active pr edniSONE 10 MG eCW1 ([facility]) Temazepam 30 MG Oral Capsule Temazepam 30 MG 09/23/2020 12:00:00 AM EDT active Temazepam 30 MG eCW1 ([facility]) 90 mcg/actuation 09/23/2020 12:00:00 AM EDT HFA aerosol inha ler 8 INHALE TWO PUFFS FOUR TIMES A DAY NEEDED INHALE TWO PUFFS FOUR TIMES A DAY NEEDED SOLD: 09/23/2020 [facility] 0.5 mg 08/25/2020 12:00:00 AM EDT tablet 60 TAKE 1-2 TABLETS BY MOUTH AT BEDTIME NEEDED MAXIMUM DAILY DOSE = 2 TAKE 1-2 TABLETS BY MOUTH AT BEDTIME NEEDED MAXIMUM DAILY DOSE = 2 SOLD: 08/26/2020 [facility] 30 mg 08/25/2020 12:00:00 AM EDT capsule 30 TAKE ONE CAPSULE BY MOUTH EVERY DAY BEFORE BEDTIME NEEDED FOR INSOMNIA MAXIMUM DAILY DOSE = 1 TAKE ONE CAPSULE BY MOUTH EVERY DAY BEFORE BEDTIME NEEDED FOR INSOMNIA MAXIMUM DAILY DOSE = 1 SOLD: 08/26/2020 [facility] 30 mg 07/25/2020 12:00:00 AM EDT capsule 30 TAKE ONE CAPSULE BY MOUTH AT BEDTIME NEEDED FOR INSOMNIA MAXIMUM DAILY DOSE = 1 CASPULE TAKE ONE CAPSULE BY MOUTH AT BEDTIME NEEDED FOR INSOMNIA MAXIMUM DAILY DOSE = 1 CASPULE SOLD: 07/25/2020 [facility] 0.5 mg 07/25/2020 12:00:00 AM EDT tablet 60 TAKE 1-2 TABLETS BY MOUTH AT BEDTIME NEEDED MAXIMUM DAILY DOSE = 2 TABLETS TAKE 1-2 TABLETS BY MOUTH AT BEDTIME NEEDED MAXIMUM DAILY DOSE = 2 TABLETS SOLD: 07/25/2020 [facility] 100 mcg 07/08/2020 12:00:00 AM EDT tablet 30 TAKE ONE TABLET BY MOUTH EVERY MORNING ON AN EMPTY STOMACH TAKE ONE TABLET BY MOUTH EVERY MORNING O N AN EMPTY STOMACH SOLD: 09/21/2020 [facility] 100 mcg 07/08/2020 12:00:00 AM EDT tablet 30 TAKE ONE TABLET BY MOUTH EVERY MORNING ON AN EMPTY STOMACH TAKE ONE TABLET BY MOUTH EVERY MORNING O N AN EMPTY STOMACH SOLD: 10/21/2020 [facility] 100 mcg 07/08/2020 12:00:00 AM EDT tablet 30 TAKE ONE TABLET BY MOUTH EVERY MORNING ON AN EMPTY STOMACH TAKE ONE TABLET BY MOUTH EVERY MORNING O N AN EMPTY STOMACH SOLD: 11/19/2020 [facility] 100 mcg 07/08/2020 12:00:00 AM EDT tablet 30 TAKE ONE TABLET BY MOUTH EVERY MORNING ON AN EMPTY STOMACH TAKE ONE TABLET BY MOUTH EVERY MORNING O N AN EMPTY STOMACH SOLD: 07/08/2020 [facility] 100 mcg 07/08/2020 12:00:00 AM EDT tablet 30 TAKE ONE TABLET BY MOUTH EVERY MORNING ON AN EMPTY STOMACH TAKE ONE TABLET BY MOUTH EVERY MORNING O N AN EMPTY STOMACH SOLD: 08/21/2020 [facility] 30 mg 06/26/2020 12:00:00 AM EDT capsule 30 TAKE ONE CAPSULE BY MOUTH BEFORE BEDTIME NEEDED TAKE ONE CAPSULE BY MOUTH BEFORE BEDTIME NEEDED AUGUST [facility] Cephalexin 500 MG Oral Capsule CEPHALEXIN 06/26/2020 12:00:00 AM EDT capsule 30 TAKE ONE CAPSULE BY MOUTH THREE TIMES A DAY TAKE ONE C APSULE BY MOUTH THREE TIMES A DAY SOLD: 06/26/2020 [facility] 0.5 mg 06/26/2020 12:00:00 AM EDT tablet 60 TAKE ONE TO TWO TABLETS BY MOUTH EVERY DAY NEEDED MAXIMUM DAILY DOSE = 2 TAKE ONE TO TWO TABLETS BY MOUTH EVERY DAY NEEDED MAXIMUM DAILY DOSE = 2 SOLD: 06/26/2020 [facility] 0.01 % 05/29/2020 12:00:00 AM EDT drops 7 INSTILL 1 DROP INTO BOTH EYES AT BEDTIME DIRECTED INSTILL 1 DROP INTO BOTH EYES AT BEDTIME DIRECTED S OLD: 09/30/2020 [facility] 0.01 % 05/29/2020 12:00:00 AM EDT drops 7 INSTILL 1 DROP INTO BOTH EYES AT BEDTIME DIRECTED INSTILL 1 DROP INTO BOTH EYES AT BEDTIME DIRECTED S OLD: 12/11/2020 [facility] 0.01 % 05/29/2020 12:00:00 AM EDT drops 7 INSTILL 1 DROP INTO BOTH EYES AT BEDTIME DIRECTED INSTILL 1 DROP INTO BOTH EYES AT BEDTIME DIRECTED S OLD: 06/03/2020 [facility] 0.5 mg 05/26/2020 12:00:00 AM EDT tablet 60 TAKE 1-2 TABLETS BY MOUTH NEEDED AT BEDTIME MAXIMUM DAILY DOSE = 2 TAKE 1-2 TABLETS BY MOUTH NEEDED AT BEDTIME MAXIMUM DAILY DOSE = 2 SOLD: 05/28/2020 [facility] 30 mg 05/26/2020 12:00:00 AM EDT capsule 30 TAKE ONE TABLET BY MOUTH BEFORE BEDTIME NEEDED FOR INSOMNIA, MAXIMUM DAILY DOSE = 1 TAKE ONE TABLET BY MOUTH BEFORE BEDTIME NEEDED FOR INSOMNIA, MAXIMUM DAILY DOSE = 1 SOLD: 05/28/2020 [facility] Clarithromycin 500 MG Oral Tablet Clarithromycin 500 MG 05/07 12:00:00 AM EDT 1.0 {tablet} active Clarithromy nicola 500 MG eCW1 ([facility]) Clarithromycin 500 MG Oral Tablet Clarithromycin 500 MG 05/07 12:00:00 AM EDT 1.0 {tablet} active Clarithromy nicola 500 MG eCW1 ([facility]) Clarithromycin 500 MG Oral Tablet Clarithromycin 500 MG 05/07 12:00:00 AM EDT 1.0 {tablet} active Clarithromy nicola 500 MG eCW1 ([facility]) Fluconazole 150 MG Oral Tablet [Diflucan] Diflucan 150 MG Di flucan 150 MG 05/21/2020 12:00:00 AM EDT 1.0 {tablet} active Diflucan 150 MG eCW1 ([facility]) Fluconazole 150 MG Oral Tablet [Diflucan] Diflucan 150 MG Di flucan 150 MG 05/21/2020 12:00:00 AM EDT 1.0 {tablet} suspended Diflucan 150 MG eCW1 ([facility]) 150 mg 05/21/2020 12:00:00 AM EDT tablet 2 TAKE ONE TABLET BY MOUTH TODAY THEN REPEAT IN 10 DAYS TAKE ONE TABLET BY MOUTH TODAY THEN REPEAT IN 10 DAYS SOLD: 05/21/2020 [facility] Fluconazole 150 MG Oral Tablet [Diflucan] Diflucan 150 MG Di flucan 150 MG 05/21/2020 12:00:00 AM EDT 1.0 {tablet} active Diflucan 150 MG eCW1 ([facility]) Fluconazole 150 MG Oral Tablet [Diflucan] Diflucan 150 MG Di flucan 150 MG 05/21/2020 12:00:00 AM EDT 1.0 {tablet} active Diflucan 150 MG eCW1 ([facility]) Fluconazole 150 MG Oral Tablet [Diflucan] Diflucan 150 MG Di flucan 150 MG 05/21/2020 12:00:00 AM EDT 1.0 {tablet} active Diflucan 150 MG eCW1 ([facility]) Fluconazole 150 MG Oral Tablet [Diflucan] Diflucan 150 MG Di flucan 150 MG 05/21/2020 12:00:00 AM EDT 1.0 {tablet} active Diflucan 150 MG eCW1 ([facility]) Fluconazole 150 MG Oral Tablet [Diflucan] Diflucan 150 MG Di flucan 150 MG 05/21/2020 12:00:00 AM EDT 1.0 {tablet} suspended Diflucan 150 MG eCW1 ([facility]) Clarithromycin 500 MG Oral Tablet Clarithromycin 500 MG 05/07 12:00:00 AM EDT 1.0 {tablet} active Clarithromy nicola 500 MG eCW1 ([facility]) Clarithromycin 500 MG Oral Tablet Clarithromycin 500 MG 05/07 12:00:00 AM EDT 1.0 {tablet} active Clarithromy nicola 500 MG eCW1 ([facility]) Clarithromycin 500 MG Oral Tablet Clarithromycin 500 MG 05/07 12:00:00 AM EDT 1.0 {tablet} active Clarithromy nicola 500 MG eCW1 ([facility]) Clarithromycin 500 MG Oral Tablet Clarithromycin 500 MG 05/07 12:00:00 AM EDT 1.0 {tablet} active Clarithromy nicola 500 MG eCW1 ([facility]) Fluconazole 150 MG Oral Tablet [Diflucan] Diflucan 150 MG Di flucan 150 MG 05/21/2020 12:00:00 AM EDT 1.0 {tablet} suspended Diflucan 150 MG eCW1 ([facility]) Fluconazole 150 MG Oral Tablet [Diflucan] Diflucan 150 MG Di flucan 150 MG 05/21/2020 12:00:00 AM EDT 1.0 {tablet} active Diflucan 150 MG eCW1 ([facility]) Clarithromycin 500 MG Oral Tablet Clarithromycin 500 MG 05/07 12:00:00 AM EDT 1.0 {tablet} active Clarithromy nicola 500 MG eCW1 ([facility]) Clarithromycin 500 MG Oral Tablet Clarithromycin 500 MG 05/07 12:00:00 AM EDT 1.0 {tablet} active Clarithromy nicola 500 MG eCW1 ([facility]) Fluconazole 150 MG Oral Tablet [Diflucan] Diflucan 150 MG Di flucan 150 MG 05/21/2020 12:00:00 AM EDT 1.0 {tablet} active Diflucan 150 MG eCW1 ([facility]) Fluconazole 150 MG Oral Tablet [Diflucan] Diflucan 150 MG Di flucan 150 MG 05/21/2020 12:00:00 AM EDT 1.0 {tablet} active Diflucan 150 MG eCW1 ([facility]) Fluconazole 150 MG Oral Tablet [Diflucan] Diflucan 150 MG Di flucan 150 MG 05/21/2020 12:00:00 AM EDT 1.0 {tablet} suspended Diflucan 150 MG eCW1 ([facility]) Clarithromycin 500 MG Oral Tablet Clarithromycin 500 MG 05/07 12:00:00 AM EDT 1.0 {tablet} active Clarithromy nicola 500 MG eCW1 ([facility]) 500 mg 05/21/2020 12:00:00 AM EDT tablet 20 TAKE ONE TABLET BY MOUTH TWICE A DAY TAKE ONE TABLET BY MOUTH TWICE A DAY SOLD: 05/21/2020 [employer] [facility] Clarithromycin 500 MG Oral Tablet Clarithromycin 500 MG 05/07 12:00:00 AM EDT 1.0 {tablet} active Clarithromy nicola 500 MG eCW1 ([facility]) Clarithromycin 500 MG Oral Tablet Clarithromycin 500 MG 05/07 12:00:00 AM EDT 1.0 {tablet} active Clarithromy nicola 500 MG eCW1 ([facility]) Fluconazole 150 MG Oral Tablet [Diflucan] Diflucan 150 MG Di flucan 150 MG 05/21/2020 12:00:00 AM EDT 1.0 {tablet} active Diflucan 150 MG eCW1 ([facility]) Clarithromycin 500 MG Oral Tablet Clarithromycin 500 MG 05/07 12:00:00 AM EDT 1.0 {tablet} active Clarithromy nicola 500 MG eCW1 ([facility]) Fluconazole 150 MG Oral Tablet [Diflucan] Diflucan 150 MG Di flucan 150 MG 05/21/2020 12:00:00 AM EDT 1.0 {tablet} active Diflucan 150 MG eCW1 ([facility]) Clarithromycin 500 MG Oral Tablet Clarithromycin 500 MG 05/07 12:00:00 AM EDT 1.0 {tablet} active Clarithromy nicola 500 MG eCW1 ([facility]) Fluconazole 150 MG Oral Tablet [Diflucan] Diflucan 150 MG Di flucan 150 MG 05/21/2020 12:00:00 AM EDT 1.0 {tablet} active Diflucan 150 MG eCW1 ([facility]) Clarithromycin 500 MG Oral Tablet Clarithromycin 500 MG 05/07 12:00:00 AM EDT 1.0 {tablet} active Clarithromy nicola 500 MG eCW1 ([facility]) 0.5 mg 04/26/2020 12:00:00 AM EDT tablet 60 TAKE ONE TO TWO TABLETS BY MOUTH AT BEDTIME MAXIMUM DAILY DOSE = 2 TAKE ONE TO TWO TABLETS BY MOUTH AT BEDT GUANACO MAXIMUM DAILY DOSE = 2 SOLD: 04/26/2020 [facility] 30 mg 04/26/2020 12:00:00 AM EDT capsule 30 TAKE ONE CAPSULE BY MOUTH EVERY DAY NEEDED FOR INSOMNIA, MAXIMUM DAILY DOSE = 1 TAKE ONE CAPSULE BY MOUTH EVERY DAY NEEDED FOR INSOMNIA, MAXIMUM DAILY DOSE = 1 SOLD: 04/26/2020 [facility] 0.5 mg 03/28/2020 12:00:00 AM EST tablet 60 TAKE 1-2 TABLETS AT BEDTIME NEEDED MAXIMUM DAILY DOSE = 2 TAKE 1-2 TABLETS AT BEDTIME NEEDED ANA YEAGERLORIFrederic DAILY DOSE = 2 SOLD: 03/28/2020 [facility] 30 mg 03/28/2020 12:00:00 AM EST capsule 30 TAKE ONE TABLET NEEDED FOR INSOMNIA. MAXIMUM DAILY DOSE = 1 TAKE ONE TABLET NEEDED FOR INSOMNIA. MAXIMUM DAILY DOSE = 1 SOLD: 03/28/2020 [facility] Hydrochlorothiazide 12.5 MG Oral Tablet HYDROCHLOROTHIAZIDE 03/27/2020 12:00:00 AM EST tablet 90 TAKE ONE TABLET BY MOUTH RD [facility] MORNING TAKE ONE TABLET BY MOUTH EVERY MORNING SOLD: 03/28/2020 [facility] Hydrochlorothiazide 12.5 MG Oral Tablet HYDROCHLOROTHIAZIDE 03/27/2020 12:00:00 AM EST tablet 90 TAKE ONE TABLET BY MOUTH RD [facility] MORNING TAKE ONE TABLET BY MOUTH EVERY MORNING SOLD: 07/08/2020 [facility] 1 billion cell- 250 mg 03/22/2020 12:00:00 AM EST tablet 30 TAKE ONE TABLET BY MOUTH EVERY DAY TAKE ONE TABLET BY MOUTH EVERY DAY SOLD: 07/15/2020 [facility] 1 billion cell- 250 mg 03/22/2020 12:00:00 AM EST tablet 30 TAKE ONE TABLET BY MOUTH EVERY DAY TAKE ONE TABLET BY MOUTH EVERY DAY SOLD: 08/21/2020 [facility] 1 billion cell- 250 mg 03/22/2020 12:00:00 AM EST tablet 30 TAKE ONE TABLET BY MOUTH EVERY DAY TAKE ONE TABLET BY MOUTH EVERY DAY SOLD: 05/28/2020 [facility] 1 billion cell- 250 mg 03/22/2020 12:00:00 AM EST tablet 30 TAKE ONE TABLET BY MOUTH EVERY DAY TAKE ONE TABLET BY MOUTH EVERY DAY SOLD: 03/22/2020 [facility] 1 billion cell- 250 mg 03/22/2020 12:00:00 AM EST tablet 30 TAKE ONE TABLET BY MOUTH EVERY DAY TAKE ONE TABLET BY MOUTH EVERY DAY SOLD: 04/26/2020 [facility] 1 billion cell- 250 mg 03/22/2020 12:00:00 AM EST tablet 30 TAKE ONE TABLET BY MOUTH EVERY DAY TAKE ONE TABLET BY MOUTH EVERY DAY SOLD: 09/21/2020 [facility] 100 mcg 03/18/2020 12:00:00 AM EST tablet 90 TAKE ONE TABLET BY MOUTH EVERY DAY IN THE MORNING ON AN EMPTY STOMACH TAKE ONE TABLET BY MOUTH EVERY DAY IN MORNING ON AN EMPTY STOMACH SOLD: 03/18/2020 [facility] 40 mg 03/18/2020 12:00:00 AM EST capsule,delayed release (DR/EC) 90 TAKE ONE CAPSULE BY MOUTH EVERY DAY 30 MINUTES BEFORE MORNING MEAL TAKE ONE CAPSULE BY MOUTH EVERY DAY 30 MINUTES BEFORE MORNING MEAL SOLD: 06/26/2020 [facility] 10 mg 03/18/2020 12:00:00 AM EST capsule 90 TAKE ONE CAPSULE BY MOUTH EVERY DAY IN THE MORNING WITH 20MG CAPSULE TAKE ONE CAPSULE BY MOUTH EVERY DAY IN WITH 20MG CAPSULE SOLD: 06/26/2020 [facility] 21 mg/24 hr 03/18/2020 12:00:00 AM EST patch 24 hour 28 APPLY 1 PATCH TO SKIN DAILY APPLY 1 PATCH TO SKIN DAILY SOLD: 03/18/2020 [facility] 40 mg 03/18/2020 12:00:00 AM EST capsule,delayed release (DR/EC) 90 TAKE ONE CAPSULE BY MOUTH EVERY DAY 30 MINUTES BEFORE MORNING MEAL TAKE ONE CAPSULE BY MOUTH EVERY DAY 30 MINUTES BEFORE MORNING MEAL SOLD: 03/18/2020 [facility] 10 mg 03/18/2020 12:00:00 AM EST capsule 90 TAKE ONE CAPSULE BY MOUTH EVERY DAY IN THE MORNING WITH 20MG CAPSULE TAKE ONE CAPSULE BY MOUTH EVERY DAY IN WITH 20MG CAPSULE SOLD: 03/18/2020 [facility] 20 mg 03/18/2020 12:00:00 AM EST capsule 90 TAKE ONE CAPSULE BY MOUTH EVERY DAY IN THE MORNING WITH 10MG CAPSULE TAKE ONE CAPSULE BY MOUTH EVERY DAY IN MORNING WITH 10MG CAPSULE SOLD: 03/18/2020 [facility] Bacid - Bacid - 03/17/2020 12:00:00 AM EST active Bacid - eCW1 ([facility]) 24 HR Nicotine 0.875 MG/HR Transdermal P atch [Nicoderm C-Q] Nicoderm CQ 21 MG/24HR Nicoderm CQ 21 MG/24HR 03/17/2020 12:00:00 AM EST 1.0 {patch_to_skin} active Nicoderm CQ 21 MG/24 HR eCW1 ([facility]) Omeprazole 40 MG Delayed Release Oral Capsule Omeprazole 40 MG 03/17/2020 12:00:00 AM EST active Omeprazo le 40 MG eCW1 ([facility]) Omeprazole 40 MG Delayed Release Oral Capsule Omeprazole 40 MG 03/17/2020 12:00:00 AM EST active Omeprazo le 40 MG eCW1 ([facility]) 24 HR Nicotine 0.875 MG/HR Transdermal P atch [Nicoderm C-Q] Nicoderm CQ 21 MG/24HR Nicoderm CQ 21 MG/24HR 03/17/2020 12:00:00 AM EST 1.0 {patch_to_skin} active Nicoderm CQ 21 MG/24 HR eCW1 ([facility]) Loratadine 10 MG Oral Tablet Loratadine 10 MG 03/17/2020 12:00:00 A M EST 1.0 {tablet} active Loratadine 10 MG eCW1 ( [facility]) Loratadine 10 MG Oral Tablet Loratadine 10 MG 03/17/2020 12:00:00 A M EST 1.0 {tablet} suspended Loratadine 10 MG eCW1 ([facility]) Loratadine 10 MG Oral Tablet Loratadine 10 MG 03/17/2020 12:00:00 A M EST 1.0 {tablet} active Loratadine 10 MG eCW1 ( [facility]) Bacid - Bacid - 03/17/2020 12:00:00 AM EST active Bacid - eCW1 ([facility]) Loratadine 10 MG Oral Tablet Loratadine 10 MG 03/17/2020 12:00:00 A M EST 1.0 {tablet} active Loratadine 10 MG eCW1 ( [facility]) Loratadine 10 MG Oral Tablet Loratadine 10 MG 03/17/2020 12:00:00 A M EST 1.0 {tablet} suspended Loratadine 10 MG eCW1 ([facility]) Omeprazole 40 MG Delayed Release Oral Capsule Omeprazole 40 MG 03/17/2020 12:00:00 AM EST active Omeprazo le 40 MG eCW1 ([facility]) Loratadine 10 MG Oral Tablet Loratadine 10 MG 03/17/2020 12:00:00 A M EST 1.0 {tablet} active Loratadine 10 MG eCW1 ( [facility]) Omeprazole 40 MG Delayed Release Oral Capsule Omeprazole 40 MG 03/17/2020 12:00:00 AM EST active Omeprazo le 40 MG eCW1 ([facility]) 24 HR Nicotine 0.875 MG/HR Transdermal P atch [Nicoderm C-Q] Nicoderm CQ 21 MG/24HR Nicoderm CQ 21 MG/24HR 03/17/2020 12:00:00 AM EST 1.0 {patch_to_skin} active Nicoderm CQ 21 MG/24 HR eCW1 ([facility]) Loratadine 10 MG Oral Tablet Loratadine 10 MG 03/17/2020 12:00:00 A M EST 1.0 {tablet} active Loratadine 10 MG eCW1 ( [facility]) Omeprazole 40 MG Delayed Release Oral Capsule Omeprazole 40 MG 03/17/2020 12:00:00 AM EST active Omeprazo le 40 MG eCW1 ([facility]) Loratadine 10 MG Oral Tablet Loratadine 10 MG 03/17/2020 12:00:00 A M EST 1.0 {tablet} active Loratadine 10 MG eCW1 ( [facility]) 24 HR Nicotine 0.875 MG/HR Transdermal P atch [Nicoderm C-Q] Nicoderm CQ 21 MG/24HR Nicoderm CQ 21 MG/24HR 03/17/2020 12:00:00 AM EST 1.0 {patch_to_skin} active Nicoderm CQ 21 MG/24 HR eCW1 ([facility]) 24 HR Nicotine 0.875 MG/HR Transdermal P atch [Nicoderm C-Q] Nicoderm CQ 21 MG/24HR Nicoderm CQ 21 MG/24HR 03/17/2020 12:00:00 AM EST 1.0 {patch_to_skin} active Nicoderm CQ 21 MG/24 HR eCW1 ([facility]) Omeprazole 40 MG Delayed Release Oral Capsule Omeprazole 40 MG 03/17/2020 12:00:00 AM EST active Omeprazo le 40 MG eCW1 ([facility]) Bacid - Bacid - 03/17/2020 12:00:00 AM EST active Bacid - eCW1 ([facility]) Loratadine 10 MG Oral Tablet Loratadine 10 MG 03/17/2020 12:00:00 A M EST 1.0 {tablet} active Loratadine 10 MG eCW1 ( [facility]) 24 HR Nicotine 0.875 MG/HR Transdermal P atch [Nicoderm C-Q] Nicoderm CQ 21 MG/24HR Nicoderm CQ 21 MG/24HR 03/17/2020 12:00:00 AM EST 1.0 {patch_to_skin} active Nicoderm CQ 21 MG/24 HR eCW1 ([facility]) Loratadine 10 MG Oral Tablet Loratadine 10 MG 03/17/2020 12:00:00 A M EST 1.0 {tablet} active Loratadine 10 MG eCW1 ( [facility]) 24 HR Nicotine 0.875 MG/HR Transdermal P atch [Nicoderm C-Q] Nicoderm CQ 21 MG/24HR Nicoderm CQ 21 MG/24HR 03/17/2020 12:00:00 AM EST 1.0 {patch_to_skin} active Nicoderm CQ 21 MG/24 HR eCW1 ([facility]) Bacid - Bacid - 03/17/2020 12:00:00 AM EST active Bacid - eCW1 ([facility]) Loratadine 10 MG Oral Tablet Loratadine 10 MG 03/17/2020 12:00:00 A M EST 1.0 {tablet} active Loratadine 10 MG eCW1 ( [facility]) 24 HR Nicotine 0.875 MG/HR Transdermal P atch [Nicoderm C-Q] Nicoderm CQ 21 MG/24HR Nicoderm CQ 21 MG/24HR 03/17/2020 12:00:00 AM EST 1.0 {patch_to_skin} active Nicoderm CQ 21 MG/24 HR eCW1 ([facility]) Loratadine 10 MG Oral Tablet Loratadine 10 MG 03/17/2020 12:00:00 A M EST 1.0 {tablet} active Loratadine 10 MG eCW1 ( [facility]) 24 HR Nicotine 0.875 MG/HR Transdermal P atch [Nicoderm C-Q] Nicoderm CQ 21 MG/24HR Nicoderm CQ 21 MG/24HR 03/17/2020 12:00:00 AM EST 1.0 {patch_to_skin} active Nicoderm CQ 21 MG/24 HR eCW1 ([facility]) 24 HR Nicotine 0.875 MG/HR Transdermal P atch [Nicoderm C-Q] Nicoderm CQ 21 MG/24HR Nicoderm CQ 21 MG/24HR 03/17/2020 12:00:00 AM EST 1.0 {patch_to_skin} active Nicoderm CQ 21 MG/24 HR eCW1 ([facility]) 24 HR Nicotine 0.875 MG/HR Transdermal P atch [Nicoderm C-Q] Nicoderm CQ 21 MG/24HR Nicoderm CQ 21 MG/24HR 03/17/2020 12:00:00 AM EST 1.0 {patch_to_skin} active Nicoderm CQ 21 MG/24 HR eCW1 ([facility]) Loratadine 10 MG Oral Tablet Loratadine 10 MG 03/17/2020 12:00:00 A M EST 1.0 {tablet} active Loratadine 10 MG eCW1 ( [facility]) Bacid - Bacid - 03/17/2020 12:00:00 AM EST active Bacid - eCW1 ([facility]) Omeprazole 40 MG Delayed Release Oral Capsule Omeprazole 40 MG 03/17/2020 12:00:00 AM EST active Omeprazo le 40 MG eCW1 ([facility]) 24 HR Nicotine 0.875 MG/HR Transdermal P atch [Nicoderm C-Q] Nicoderm CQ 21 MG/24HR Nicoderm CQ 21 MG/24HR 03/17/2020 12:00:00 AM EST 1.0 {patch_to_skin} active Nicoderm CQ 21 MG/24 HR eCW1 ([facility]) Bacid - Bacid - 03/17/2020 12:00:00 AM EST active Bacid - eCW1 ([facility]) Omeprazole 40 MG Delayed Release Oral Capsule Omeprazole 40 MG 03/17/2020 12:00:00 AM EST active Omeprazo le 40 MG eCW1 ([facility]) Loratadine 10 MG Oral Tablet Loratadine 10 MG 03/17/2020 12:00:00 A M EST 1.0 {tablet} active Loratadine 10 MG eCW1 ( [facility]) Bacid - Bacid - 03/17/2020 12:00:00 AM EST active Bacid - eCW1 ([facility]) Loratadine 10 MG Oral Tablet Loratadine 10 MG 03/17/2020 12:00:00 A M EST 1.0 {tablet} suspended Loratadine 10 MG eCW1 ([facility]) Omeprazole 40 MG Delayed Release Oral Capsule Omeprazole 40 MG 03/17/2020 12:00:00 AM EST active Omeprazo le 40 MG eCW1 ([facility]) Omeprazole 40 MG Delayed Release Oral Capsule Omeprazole 40 MG 03/17/2020 12:00:00 AM EST active Omeprazo le 40 MG eCW1 ([facility]) Omeprazole 40 MG Delayed Release Oral Capsule Omeprazole 40 MG 03/17/2020 12:00:00 AM EST active Omeprazo le 40 MG eCW1 ([facility]) Loratadine 10 MG Oral Tablet Loratadine 10 MG 03/17/2020 12:00:00 A M EST 1.0 {tablet} active Loratadine 10 MG eCW1 ( [facility]) Bacid - Bacid - 03/17/2020 12:00:00 AM EST active Bacid - eCW1 ([facility]) Bacid - Bacid - 03/17/2020 12:00:00 AM EST active Bacid - eCW1 ([facility]) Omeprazole 40 MG Delayed Release Oral Capsule Omeprazole 40 MG 03/17/2020 12:00:00 AM EST active Omeprazo le 40 MG eCW1 ([facility]) Omeprazole 40 MG Delayed Release Oral Capsule Omeprazole 40 MG 03/17/2020 12:00:00 AM EST active Omeprazo le 40 MG eCW1 ([facility]) 24 HR Nicotine 0.875 MG/HR Transdermal P atch [Nicoderm C-Q] Nicoderm CQ 21 MG/24HR Nicoderm CQ 21 MG/24HR 03/17/2020 12:00:00 AM EST 1.0 {patch_to_skin} active Nicoderm CQ 21 MG/24 HR eCW1 ([facility]) 24 HR Nicotine 0.875 MG/HR Transdermal P atch [Nicoderm C-Q] Nicoderm CQ 21 MG/24HR Nicoderm CQ 21 MG/24HR 03/17/2020 12:00:00 AM EST 1.0 {patch_to_skin} active Nicoderm CQ 21 MG/24 HR eCW1 ([facility]) 24 HR Nicotine 0.875 MG/HR Transdermal P atch [Nicoderm C-Q] Nicoderm CQ 21 MG/24HR Nicoderm CQ 21 MG/24HR 03/17/2020 12:00:00 AM EST 1.0 {patch_to_skin} active Nicoderm CQ 21 MG/24 HR eCW1 ([facility]) Bacid - Bacid - 03/17/2020 12:00:00 AM EST active Bacid - eCW1 ([facility]) Omeprazole 40 MG Delayed Release Oral Capsule Omeprazole 40 MG 03/17/2020 12:00:00 AM EST active Omeprazo le 40 MG eCW1 ([facility]) Bacid - Bacid - 03/17/2020 12:00:00 AM EST active Bacid - eCW1 ([facility]) 24 HR Nicotine 0.875 MG/HR Transdermal P atch [Nicoderm C-Q] Nicoderm CQ 21 MG/24HR Nicoderm CQ 21 MG/24HR 03/17/2020 12:00:00 AM EST 1.0 {patch_to_skin} active Nicoderm CQ 21 MG/24 HR eCW1 ([facility]) Bacid - Bacid - 03/17/2020 12:00:00 AM EST active Bacid - eCW1 ([facility]) 24 HR Nicotine 0.875 MG/HR Transdermal P atch [Nicoderm C-Q] Nicoderm CQ 21 MG/24HR Nicoderm CQ 21 MG/24HR 03/17/2020 12:00:00 AM EST 1.0 {patch_to_skin} active Nicoderm CQ 21 MG/24 HR eCW1 ([facility]) Loratadine 10 MG Oral Tablet Loratadine 10 MG 03/17/2020 12:00:00 A M EST 1.0 {tablet} suspended Loratadine 10 MG eCW1 ([facility]) Omeprazole 40 MG Delayed Release Oral Capsule Omeprazole 40 MG 03/17/2020 12:00:00 AM EST active Omeprazo le 40 MG eCW1 ([facility]) Loratadine 10 MG Oral Tablet Loratadine 10 MG 03/17/2020 12:00:00 A M EST 1.0 {tablet} active Loratadine 10 MG eCW1 ( [facility]) Bacid - Bacid - 03/17/2020 12:00:00 AM EST active Bacid - eCW1 ([facility]) Bacid - Bacid - 03/17/2020 12:00:00 AM EST active Bacid - eCW1 ([facility]) 24 HR Nicotine 0.875 MG/HR Transdermal P atch [Nicoderm C-Q] Nicoderm CQ 21 MG/24HR Nicoderm CQ 21 MG/24HR 03/17/2020 12:00:00 AM EST 1.0 {patch_to_skin} active Nicoderm CQ 21 MG/24 HR eCW1 ([facility]) Loratadine 10 MG Oral Tablet Loratadine 10 MG 03/17/2020 12:00:00 A M EST 1.0 {tablet} active Loratadine 10 MG eCW1 ( [facility]) Omeprazole 40 MG Delayed Release Oral Capsule Omeprazole 40 MG 03/17/2020 12:00:00 AM EST active Omeprazo le 40 MG eCW1 ([facility]) Bacid - Bacid - 03/17/2020 12:00:00 AM EST active Bacid - eCW1 ([facility]) Bacid - Bacid - 03/17/2020 12:00:00 AM EST active Bacid - eCW1 ([facility]) 24 HR Nicotine 0.875 MG/HR Transdermal P atch [Nicoderm C-Q] Nicoderm CQ 21 MG/24HR Nicoderm CQ 21 MG/24HR 03/17/2020 12:00:00 AM EST 1.0 {patch_to_skin} active Nicoderm CQ 21 MG/24 HR eCW1 ([facility]) 30 mg 02/28/2020 12:00:00 AM EST capsule 30 TAKE ONE CAPSULE BY MOUTH EVERY DAY BEFORE BEDTIME NEEDED FOR INSOMNIA MAXIMUM DAILY DOSE = 1 TAKE ONE CAPSULE BY MOUTH EVERY DAY BEFORE BEDTIME NEEDED FOR INSOMNIA MAXIMUM DAILY DOSE = 1 SOLD: 02/28/2020 [facility] 0.5 mg 02/28/2020 12:00:00 AM EST tablet 60 TAKE 1-2 TABLETS BY MOUTH AT BEDTIME NEEDED MAXIMUM DAILY DOSE = 2 TAKE 1-2 TABLETS BY MOUTH AT BEDTIME NEEDED MAXIMUM DAILY DOSE = 2 SOLD: 02/28/2020 [facility] 30 mg 01/30/2020 12:00:00 AM EST capsule 30 TAKE ONE TABLET BY MOUTH BEFORE BEDTIME NEEDED INSOMNIA MAXIMUM DAILY DOSE = 1 TAKE ONE TABLET BY MOUTH BEFORE BEDTIME NEEDED INSOMNIA MAXIMUM DAILY DOSE = 1 SOLD: 01/30/2020 [facility] 0.5 mg 01/30/2020 12:00:00 AM EST tablet 60 TAKE 1-2 TABLETS BY MOUTH AT BEDTIME NEEDED MAXIMUM DAILY DOSE = 2 TAKE 1-2 TABLETS BY MOUTH AT BEDTIME NEEDED MAXIMUM DAILY DOSE = 2 SOLD: 01/30/2020 [facility] Hydrochlorothiazide 12.5 MG Oral Tablet HYDROCHLOROTHIAZIDE 01/21/2020 12:00:00 AM EST tablet 30 TAKE ONE TABLET BY MOUTH RD [facility] MORNING TAKE ONE TABLET BY MOUTH EVERY MORNING SOLD: 02/26/2020 [facility] Hydrochlorothiazide 12.5 MG Oral Tablet HYDROCHLOROTHIAZIDE 01/21/2020 12:00:00 AM EST tablet 30 TAKE ONE TABLET BY MOUTH RD [facility] MORNING TAKE ONE TABLET BY MOUTH EVERY MORNING SOLD: 10/21/2020 [facility] Hydrochlorothiazide 12.5 MG Oral Tablet HYDROCHLOROTHIAZIDE 01/21/2020 12:00:00 AM EST tablet 30 TAKE ONE TABLET BY MOUTH RD [facility] MORNING TAKE ONE TABLET BY MOUTH EVERY MORNING SOLD: 11/19/2020 [facility] Hydrochlorothiazide 12.5 MG Oral Tablet HYDROCHLOROTHIAZIDE 01/21/2020 12:00:00 AM EST tablet 30 TAKE ONE TABLET BY MOUTH RD [facility] MORNING TAKE ONE TABLET BY MOUTH EVERY MORNING SOLD: 01/21/2020 [facility] 30 mg 01/01/2020 12:00:00 AM EST capsule 30 TAKE ONE CAPSULE BY MOUTH EVERY DAY AT BEDTIME NEEDED FOR INSOMNIA MAXIMUM DAILY DOSE = 1 TAKE ONE CAPSULE BY MOUTH EVERY DAY AT BEDTIME NEEDED FOR INSOMNIA MAXIMUM DAILY DOSE = 1 SOLD: 01/01/2020 [facility] 0.5 mg 01/01/2020 12:00:00 AM EST tablet 60 TAKE 1-2 TABLETS BY MOUTH ONCE DAILY AT BEDTIME NEEDED MAXIMUM DAILY DOSE = 2 TAKE 1-2 TABLETS BY MOUTH ONCE DAILY AT BEDTIME NEEDED MAXIMUM DAILY DOSE = 2 SOLD: 01/01/2020 [facility] 20 mg 12/28/2019 12:00:00 AM EST capsule,delayed release (DR/EC) 30 TAKE 1 CAPSULE BY MOUTH 30 MINUTES BEFORE MORNING MEAL ONCE A DAY TAKE 1 CAPSULE BY MOUTH 30 MINUTES BEFORE MORNING MEAL ONCE A DAY SOLD: 12/30/2019 [facility] Omeprazole 20 MG Delayed Release Oral Capsule Omeprazole 20 MG 12/23/2019 12:00:00 AM EST active Omeprazo le 20 MG eCW1 ([facility]) Omeprazole 20 MG Delayed Release Oral Capsule Omeprazole 20 MG 12/23/2019 12:00:00 AM EST active Omeprazo le 20 MG eCW1 ([facility]) Omeprazole 20 MG Delayed Release Oral Capsule Omeprazole 20 MG 12/23/2019 12:00:00 AM EST active Omeprazo le 20 MG eCW1 ([facility]) Omeprazole 20 MG Delayed Release Oral Capsule Omeprazole 20 MG 12/23/2019 12:00:00 AM EST active Omeprazo le 20 MG eCW1 ([facility]) Omeprazole 20 MG Delayed Release Oral Capsule Omeprazole 20 MG 12/23/2019 12:00:00 AM EST active Omeprazo le 20 MG eCW1 ([facility]) Omeprazole 20 MG Delayed Release Oral Capsule Omeprazole 20 MG 12/23/2019 12:00:00 AM EST active Omeprazo le 20 MG eCW1 ([facility]) Omeprazole 20 MG Delayed Release Oral Capsule Omeprazole 20 MG 12/23/2019 12:00:00 AM EST active Omeprazo le 20 MG eCW1 ([facility]) Omeprazole 20 MG Delayed Release Oral Capsule Omeprazole 20 MG 12/23/2019 12:00:00 AM EST active Omeprazo le 20 MG eCW1 ([facility]) Omeprazole 20 MG Delayed Release Oral Capsule Omeprazole 20 MG 12/23/2019 12:00:00 AM EST active Omeprazo le 20 MG eCW1 ([facility]) Omeprazole 20 MG Delayed Release Oral Capsule Omeprazole 20 MG 12/23/2019 12:00:00 AM EST active Omeprazo le 20 MG eCW1 ([facility]) Omeprazole 20 MG Delayed Release Oral Capsule Omeprazole 20 MG 12/23/2019 12:00:00 AM EST active Omeprazo le 20 MG eCW1 ([facility]) Omeprazole 20 MG Delayed Release Oral Capsule Omeprazole 20 MG 12/23/2019 12:00:00 AM EST active Omeprazo le 20 MG eCW1 ([facility]) Omeprazole 20 MG Delayed Release Oral Capsule Omeprazole 20 MG 12/23/2019 12:00:00 AM EST active Omeprazo le 20 MG eCW1 ([facility]) Omeprazole 20 MG Delayed Release Oral Capsule Omeprazole 20 MG 12/23/2019 12:00:00 AM EST active Omeprazo le 20 MG eCW1 ([facility]) Omeprazole 20 MG Delayed Release Oral Capsule Omeprazole 20 MG 12/23/2019 12:00:00 AM EST active Omeprazo le 20 MG eCW1 ([facility]) Omeprazole 20 MG Delayed Release Oral Capsule Omeprazole 20 MG 12/23/2019 12:00:00 AM EST active Omeprazo le 20 MG eCW1 ([facility]) Omeprazole 20 MG Delayed Release Oral Capsule Omeprazole 20 MG 12/23/2019 12:00:00 AM EST suspended Omepr azole 20 MG eCW1 ([facility]) Omeprazole 20 MG Delayed Release Oral Capsule Omeprazole 20 MG 12/23/2019 12:00:00 AM EST active Omeprazo le 20 MG eCW1 ([facility]) Omeprazole 20 MG Delayed Release Oral Capsule Omeprazole 20 MG 12/23/2019 12:00:00 AM EST active Omeprazo le 20 MG eCW1 ([facility]) Omeprazole 20 MG Delayed Release Oral Capsule Omeprazole 20 MG 12/23/2019 12:00:00 AM EST active Omeprazo le 20 MG eCW1 ([facility]) 100 mcg 12/20/2019 12:00:00 AM EST tablet 30 TAKE ONE TABLET BY MOUTH EVERY MORNING ON AN EMPTY STOMACH TAKE ONE TABLET BY MOUTH EVERY MORNING O N AN EMPTY STOMACH SOLD: 01/21/2020 [facility] 100 mcg 12/20/2019 12:00:00 AM EST tablet 30 TAKE ONE TABLET BY MOUTH EVERY MORNING ON AN EMPTY STOMACH TAKE ONE TABLET BY MOUTH EVERY MORNING O N AN EMPTY STOMACH SOLD: 2019 [facility] 100 mcg 12/20/2019 12:00:00 AM EST tablet 30 TAKE ONE TABLET BY MOUTH EVERY MORNING ON AN EMPTY STOMACH TAKE ONE TABLET BY MOUTH EVERY MORNING O N AN EMPTY STOMACH SOLD: 02/26/2020 [facility] Hydrochlorothiazide 12.5 MG Oral Tablet HYDROCHLOROTHIAZIDE 12/19/2019 12:00:00 AM EST tablet 30 TAKE ONE TABLET BY MOUTH IN THE MORNING DAILY TAKE ONE TABLET BY MOUTH IN THE MORNING DAILY SOLD: 12/20/2019 [facility] 30 mg 12/04/2019 12:00:00 AM EDT capsule 30 TAKE ONE CAPSULE BY MOUTH AT BEDTIME NEEDED FOR INSOMNIA MAXIMUM DAILY DOSE = 1 TAKE ONE CAPSULE BY MOUTH AT BEDTIME NEEDED FOR INSOMNIA MAXIMUM DAILY DOSE = 1 SOLD: 12/04/2019 [facility] 0.5 mg 12/04/2019 12:00:00 AM EDT tablet 60 TAKE ONE TO TWO TABLETS BY MOUTH AT BEDTIME NEEDED MAXIMUM DAILY DOSE = 2 TAKE ONE TO TWO TABLETS BY MOUTH AT BEDTIME NEEDED MAXIMUM DAILY DOSE = 2 SOLD: 12/04/2019 [facility] 30 mg 11/05/2019 12:00:00 AM EDT capsule 30 TAKE ONE CAPSULE BY MOUTH EVERY NIGHT NECESSARY FOR INSOMNIA MAXIMUM DAILY DOSE = 1 TAKE ONE CAPSULE BY MOUTH EVERY NIGHT NECESSARY FOR INSOMNIA MAXIMUM DAILY DOSE = 1 SOLD: 11/05/2019 [facility] 0.5 mg 11/05/2019 12:00:00 AM EDT tablet 60 TAKE ONE TO TWO TABLETS BY MOUTH AT BEDTIME NEEDED FOR ANXIETY MAXIMUM DAILY DOSE = 1 TAKE ONE TO TWO TABLETS BY MOUTH AT BEDTIME NEEDED FOR ANXIETY MAXIMUM DAILY DOSE = 1 SOLD: 11/05/2019 [facility] 20 mg 10/23/2019 12:00:00 AM EDT capsule,delayed release (DR/EC) 90 TAKE ONE CAPSULE BY MOUTH EVERY DAY FOR 30 MINUTES PRIOR TO 1ST MEAL OF THE DAY TAKE ONE CAPSULE BY MOUTH EVERY DAY FOR 30 MINUTES PRIOR TO 1ST MEAL OF THE DAY SOLD: 02/19/2020 [facility] 20 mg 09/01/2019 12:00:00 AM EDT capsule 90 TAKE ONE CAPSULE BY MOUTH EVERY MORNING TAKE ONE CAPSULE BY MOUTH EVERY MORNING SOLD: 12/18/2019 [facility] 10 mg 08/28/2019 12:00:00 AM EDT capsule 90 TAKE ONE CAPSULE BY MOUTH EVERY MORNING TAKE ONE CAPSULE BY MOUTH EVERY MORNING SOLD: 12/18/2019 [facility] 100 mcg 06/07/2019 12:00:00 AM EDT tablet 30 TAKE ONE TABLET BY MOUTH EVERY MORNING ON AN EMPTY STOMACH TAKE ONE TABLET BY MOUTH EVERY MORNING O N AN EMPTY STOMACH SOLD: 11/17/2019 [facility] Hydrochlorothiazide 12.5 MG Oral Tablet HYDROCHLOROTHIAZIDE 06/05/2019 12:00:00 AM EDT tablet 30 TAKE ONE TABLET BY MOUTH RD RY MORNING TAKE ONE TABLET BY MOUTH EVERY MORNING SOLD: 11/17/2019 [facility] 0.01 % 05/29/2019 12:00:00 AM EDT drops 7 INSTILL ONE DROP IN EACH EYE AT BEDTIME DIRECTED INSTILL ONE DROP IN EACH EYE AT BEDTIME DIRECTED SO LD: 02/06/2020 [facility] Insurance Providers Payer name Policy type / Coverage type Policy ID Covered democrat ID Covered democrat's relationship to gotti Policy [place] Plan Information MEDICARE [id number] SP [id number] Medicare [place] Primary [id number] Self [id number] Medicare [place] Medicare Primary [id number] Self [id number] [place] Medicare Primary [id number] Self [id number] [place] Medicare Primary [id number] Self [id number] Medicare [place] Medicare Primary [id number] Self [id number] [place] Medicare Primary [id number] Self [id number] [place] Medicare Primary [id number] Self [id number] MEDICARE PART A -O/P [id number] 18 [id number] MEDICAID -O/P EMERGENCY ROOM [id number] PRIVATE PAY [place] [address] [facility]-Medicaid [id number] ANS-Medicare Part B [id number] ANS-Medicaid 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 test result [facility] ([facility], ) FINAL DIAGNOSIS Gastric body, biopsy: Oxyntic type gastric mucosa with minimal chronic inflammation and reactive changes. No H.pylori is identified. 10/31/2019 - 1010 CLINICAL DIAGNOSIS Epigastric pain, heartburn, left upper quadrant pain 10/30/2019 - 1621 GROSS DIAGNOSIS Received in formalin labeled "gastric body biopsy" consists of a fragment of tissue, 0.2 x 0.1 x 0.1 cm. All in one. -OA 10/30/2019 - 162 Signed LITZY ALAN MD 10/31/2019 1011 ID Date Data Source [id number] 10/25/2019 11:00:00 AM EDT [facility] Name Value Range Interpretation Code Description Data Lynnette rce(s) Supporting Document(s) SARS coronavirus 2 RNA [facility] This lab was ordered by [facility] and reported by [facility]. Procedure Social History Code Duration Value Status Description Data Source(s ) Smoking 09/23/2020 12:00:00 AM EDT Former Smoker completed Former Smoker eCW1 ([facility]) Smoking 09/23/2020 12:00:00 AM EDT Former Smoker completed Former Smoker eCW1 ([facility]) Smoking 09/23/2020 12:00:00 AM EDT Former Smoker completed Former Smoker eCW1 ([facility]) Smoking 09/23/2020 12:00:00 AM EDT Former Smoker completed Former Smoker eCW1 ([facility]) Smoking 05/21/2020 12:00:00 AM EDT Former Smoker completed Former Smoker eCW1 ([facility]) Smoking 05/21/2020 12:00:00 AM EDT Former Smoker completed Former Smoker eCW1 ([facility]) Smoking 05/21/2020 12:00:00 AM EDT Former Smoker completed Former Smoker eCW1 ([facility]) Smoking 05/21/2020 12:00:00 AM EDT Former Smoker completed Former Smoker eCW1 ([facility]) Smoking 05/21/2020 12:00:00 AM EDT Former Smoker completed Former Smoker eCW1 ([facility]) Smoking 05/21/2020 12:00:00 AM EDT Former Smoker completed Former Smoker eCW1 ([facility]) Smoking 05/21/2020 12:00:00 AM EDT Former Smoker completed Former Smoker eCW1 ([facility]) Smoking 05/21/2020 12:00:00 AM EDT Former Smoker completed Former Smoker eCW1 ([facility]) Smoking 05/21/2020 12:00:00 AM EDT Former Smoker completed Former Smoker eCW1 ([facility]) Smoking 05/21/2020 12:00:00 AM EDT Former Smoker completed Former Smoker eCW1 ([facility]) Smoking 05/21/2020 12:00:00 AM EDT Former Smoker completed Former Smoker eCW1 ([facility]) Smoking 03/19/2020 12:00:00 AM EST Former Smoker completed Former Smoker eCW1 ([facility]) Smoking 03/19/2020 12:00:00 AM EST Former Smoker completed Former Smoker eCW1 ([facility]) Smoking 03/19/2020 12:00:00 AM EST Former Smoker completed Former Smoker eCW1 ([facility]) Smoking 03/19/2020 12:00:00 AM EST Former Smoker completed Former Smoker eCW1 ([facility]) Smoking 12/30/2019 12:00:00 AM EST Former Smoker completed Former Smoker eCW1 ([facility]) Smoking 12/30/2019 12:00:00 AM EST Former Smoker completed Former Smoker eCW1 ([facility]) Smoking 12/30/2019 12:00:00 AM EST Former Smoker completed Former Smoker eCW1 ([facility]) Vital Signs ID Date Data Source UNK Name Value Range Interpretation Code Description Data Source(s) Systolic blood pressure 129 mm[Hg] 129 mm[Hg] M EDENT ([facility]) Diastolic blood pressure 79 mm[Hg] 79 mm[Hg] [facility] ([facility]) Body height 67 [in_i] 67 [in_i] [facility] ([facility]) 5'7" Heart rate 74 /min 74 /min [facility] ([facility]) Body temperature 96.4 [degF] 96.4 [degF] [facility] ([facility]) Body weight 156.25 [lb_av] 156.25 [lb_av] [facility] T ([facility]) Body mass index (BMI) [Ratio] 24.5 kg/m2 24.5 k g/m2 [facility] ([facility]) [place] body weight 135 [lb_av] 135 [lb_av[facility] Body weight 70.875 kg 70.875 kg [facility] ([facility]) Body surface area Derived from formula 1.82 m2 1.82 m2 [facility] ([facility]) Body weight 15.8 [lb_av] 15.8 [lb_av] eCW1 ([facility]) Body weight 7.17 kg 7.17 kg [facility] ([facility]) Body height 71 [in_i] 71 [in_i] W1 ([facility]) Body mass index (BMI) [Ratio] 19.38 kg/m2 19.38 kg/m2 [facility] ([facility]) Heart rate 88 /min 88 /min W1 ([facility]) Respiratory rate 18 /min 18 /min W1 ([facility]) Body temperature 97.6 [degF] 97.6 [degF] W1 ( [facility]) Systolic blood pressure 108 mm[Hg] 108 mm[Hg] e CW1 ([facility]) Diastolic blood pressure 66 mm[Hg] 66 mm[Hg] eCW1 ([facility]) Body weight 139 [lb_av] 139 [lb_av] eCW1 ([facility]) Body height 71 [in_i] 71 [in_i] eCW1 ([facility]) Body mass index (BMI) [Ratio] 19.38 kg/m2 19.38 kg/m2 eCW1 ([facility]) Heart rate 88 /min 88 /min eCW1 ([facility]) Respiratory rate 18 /min 18 /min eCW1 ([facility]) Body temperature 98.6 [degF] 98.6 [degF] eCW1 ( [facility]) Body weight 140 [lb_av] 140 [lb_av] eCW1 ([facility]) Body height 71 [in_i] 71 [in_i] eCW1 ([facility]) Body mass index (BMI) [Ratio] 19.52 kg/m2 19.52 kg/m2 eCW1 ([facility]) Heart rate 86 /min 86 /min eCW1 ([facility]) Respiratory rate 18 /min 18 /min eCW1 ([facility]) Body temperature 99 [degF] 99 [degF] eCW1 ([facility]) Systolic blood pressure 140 mm[Hg] 140 mm[Hg] e CW1 ([facility]) Diastolic blood pressure 88 mm[Hg] 88 mm[Hg] eCW1 ([facility]) Body height 70 [in_i] 70 [in_i] [facility] ([facility], ) 5'10" Body weight 138.50 [lb_av] 138.50 [lb_av] [facility] T ([facility], ) Body mass index (BMI) [Ratio] 19.9 kg/m2 19.9 k g/m2 [facility] ([facility], ) [place] body weight 150 [lb_av] 150 [lb_av] [facility] T ([facility]) Body weight 62.824 kg 62.824 kg [facility] ([facility]) Body weight 138.50 [lb_av] 138.50 [lb_av] [facility] T ([facility]) [place] body weight 150 [lb_av] 150 [lb_av] [facility] Body weight 62.824 kg 62.824 kg [facility] ([facility]) Body surface area Derived from formula 1.79 m2 1.79 m2 [facility] ([facility]) Systolic blood pressure 161 mm[Hg] 161 mm[Hg] [facility] Diastolic blood pressure 92 mm[Hg] 92 mm[Hg] [facility] ([facility]) Body height 70 [in_i] 70 [in_i] [facility] ([facility]) 5'10" Body mass index (BMI) [Ratio] 19.9 kg/m2 19.9 k g/m2 [facility] ([facility]) Patient Treatment Plan of Care Planned Activity Planned Date Details Description Data Source (s) Temazepam 30 MG Oral Capsule 11/24/2020 12:00:00 AM EDT eCW1 ([facility]) Clonazepam 0.5 MG Oral Tablet 11/24/2020 12:00:00 AM EDT eCW1 ([facility]) Clonazepam 0.5 MG Oral Tablet 10/23/2020 12:00:00 AM EDT eCW1 ([facility]) Temazepam 30 MG Oral Capsule 10/23/2020 12:00:00 AM EDT eCW1 ([facility]) Clonazepam 0.5 MG Oral Tablet 10/23/2020 12:00:00 AM EDT eCW1 ([facility]) Temazepam 30 MG Oral Capsule 10/23/2020 12:00:00 AM EDT eCW1 ([facility]) Prednisone 10 MG Oral Tablet 09/23/2020 12:00:00 AM EDT eCW1 ([facility]) Prednisone 10 MG Oral Tablet 09/23/2020 12:00:00 AM EDT eCW1 ([facility]) Prednisone 10 MG Oral Tablet 09/23/2020 12:00:00 AM EDT eCW1 ([facility]) Clonazepam 0.5 MG Oral Tablet 09/23/2020 12:00:00 AM EDT eCW1 ([facility]) Prednisone 10 MG Oral Tablet 09/23/2020 12:00:00 AM EDT eCW1 ([facility]) Temazepam 30 MG Oral Capsule 09/23/2020 12:00:00 AM EDT eCW1 ([facility]) Clarithromycin 500 MG Oral Tablet 05/21/2020 12:00:00 AM EDT eCW1 ([facility]) Fluconazole 150 MG Oral Tablet [Diflucan] 05/21/2020 12:00:00 AM ED T eCW1 ([facility]) Clarithromycin 500 MG Oral Tablet 05/21/2020 12:00:00 AM EDT eCW1 ([facility]) Fluconazole 150 MG Oral Tablet [Diflucan] 05/21/2020 12:00:00 AM ED T eCW1 ([facility]) Clarithromycin 500 MG Oral Tablet 05/21/2020 12:00:00 AM EDT eCW1 ([facility]) Fluconazole 150 MG Oral Tablet [Diflucan] 05/21/2020 12:00:00 AM ED T eCW1 ([facility]) Clarithromycin 500 MG Oral Tablet 05/21/2020 12:00:00 AM EDT eCW1 ([facility]) Fluconazole 150 MG Oral Tablet [Diflucan] 05/21/2020 12:00:00 AM ED T eCW1 ([facility]) Fluconazole 150 MG Oral Tablet [Diflucan] 05/21/2020 12:00:00 AM ED T eCW1 ([facility]) Clarithromycin 500 MG Oral Tablet 05/21/2020 12:00:00 AM EDT eCW1 ([facility]) Fluconazole 150 MG Oral Tablet [Diflucan] 05/21/2020 12:00:00 AM ED T eCW1 ([facility]) Clarithromycin 500 MG Oral Tablet 05/21/2020 12:00:00 AM EDT eCW1 ([facility]) Fluconazole 150 MG Oral Tablet [Diflucan] 05/21/2020 12:00:00 AM ED T eCW1 ([facility]) Clarithromycin 500 MG Oral Tablet 05/21/2020 12:00:00 AM EDT eCW1 ([facility]) Fluconazole 150 MG Oral Tablet [Diflucan] 05/21/2020 12:00:00 AM ED T eCW1 ([facility]) Fluconazole 150 MG Oral Tablet [Diflucan] 05/21/2020 12:00:00 AM ED T eCW1 ([facility]) Clarithromycin 500 MG Oral Tablet 05/21/2020 12:00:00 AM EDT eCW1 ([facility]) Clarithromycin 500 MG Oral Tablet 05/21/2020 12:00:00 AM EDT eCW1 ([facility]) Fluconazole 150 MG Oral Tablet [Diflucan] 05/21/2020 12:00:00 AM ED T eCW1 ([facility]) Clarithromycin 500 MG Oral Tablet 05/21/2020 12:00:00 AM EDT eCW1 ([facility]) Fluconazole 150 MG Oral Tablet [Diflucan] 05/21/2020 12:00:00 AM ED T eCW1 ([facility]) Clarithromycin 500 MG Oral Tablet 05/21/2020 12:00:00 AM EDT eCW1 ([facility]) Loratadine 10 MG Oral Tablet 03/17/2020 12:00:00 AM EST eCW1 ([facility]) 24 HR Nicotine 0.875 MG/HR Transdermal Patch [Nicoderm C-Q] 03/17/2020 12:00:00 AM EST eCW1 ([facility]) Omeprazole 40 MG Delayed Release Oral Capsule 03/17/2020 12:00:00 A M EST eCW1 ([facility]) Bacid - 03/17/2020 12:00:00 AM EST e CW1 ([facility]) Loratadine 10 MG Oral Tablet 03/17/2020 12:00:00 AM EST eCW1 ([facility]) 24 HR Nicotine 0.875 MG/HR Transdermal Patch [Nicoderm C-Q] 03/17/2020 12:00:00 AM EST eCW1 ([facility]) Omeprazole 40 MG Delayed Release Oral Capsule 03/17/2020 12:00:00 A M EST eCW1 ([facility]) Bacid - 03/17/2020 12:00:00 AM EST e CW1 ([facility]) Loratadine 10 MG Oral Tablet 03/17/2020 12:00:00 AM EST eCW1 ([facility]) 24 HR Nicotine 0.875 MG/HR Transdermal Patch [Nicoderm C-Q] 03/17/2020 12:00:00 AM EST eCW1 ([facility]) Omeprazole 40 MG Delayed Release Oral Capsule 03/17/2020 12:00:00 A M EST eCW1 ([facility]) Bacid - 03/17/2020 12:00:00 AM EST e CW1 ([facility]) Loratadine 10 MG Oral Tablet 03/17/2020 12:00:00 AM EST eCW1 ([facility]) 24 HR Nicotine 0.875 MG/HR Transdermal Patch [Nicoderm C-Q] 03/17/2020 12:00:00 AM EST eCW1 ([facility]) Omeprazole 40 MG Delayed Release Oral Capsule 03/17/2020 12:00:00 A M EST eCW1 ([facility]) Bacid - 03/17/2020 12:00:00 AM EST e CW1 ([facility]) Omeprazole 20 MG Delayed Release Oral Capsule 12/23/2019 12:00:00 A M EST eCW1 ([facility]) Omeprazole 20 MG Delayed Release Oral Capsule 12/23/2019 12:00:00 A M EST eCW1 ([facility]) Omeprazole 20 MG Delayed Release Oral Capsule 12/23/2019 12:00:00 A M EST eCW1 ([facility]) Omeprazole 20 MG Delayed Release Oral Capsule 12/23/2019 12:00:00 A M EST eCW1 ([facility]) Omeprazole 20 MG Delayed Release Oral Capsule 12/23/2019 12:00:00 A M EST eCW1 ([facility]) Omeprazole 20 MG Delayed Release Oral Capsule 12/23/2019 12:00:00 A M EST eCW1 ([facility])
[2020-12-23] MEDS ORDERED: propofoL 200 MG/20 ML VIAL As Ordered ONE (09:21)
[2020-12-23] MEDS ORDERED: LIDOCAINE 2% 100MG/5ML SDV (FOR ANES.) As Ordered ONE (09:21)
[2020-12-23] MEDS ORDERED: ePHEDrine SULFATE 25 MG/5 ML(5MG/ML) SYRINGE As Ordered ONE (10:50)
--- NOTE | 2020-12-23 11:24 | ROOR ---
Patient Name: Jared Meza Procedure Date: 12/23/2020 10:41 AM Date of : 1950 Age: 70 Room: [facility] Gender: Female Note Status: Finalized Procedure: Colonoscopy Indications: High risk colon cancer surveillance: Personal history of colonic polyps Providers: Edwin Alaniz MD Referring MD: Brittani Carlson NP Requesting Provider: Medicines: Monitored Anesthesia Care Complications: No immediate complications. Procedure: Pre-Anesthesia Assessment: - Prior to the procedure, a History and Physical was performed, and patient medications and allergies were reviewed. The patient is competent. The risks and benefits of the procedure and the sedation options and risks were discussed with the patient. All questions were answered and informed consent was obtained. Patient identification and proposed procedure were verified by the physician, the nurse and the anesthesiologist in the endoscopy suite. Mental Status Examination: alert and oriented. Airway Examination: normal oropharyngeal airway and neck mobility. Respiratory Examination: clear to auscultation. CV Examination: normal. Prophylactic Antibiotics: The patient does not require prophylactic antibiotics. Prior Anticoagulants: The patient has taken no previous anticoagulant or antiplatelet agents. ASA Grade Assessment: II - A patient with mild systemic disease. After reviewing the risks and benefits, the patient was deemed in satisfactory condition to undergo the procedure. The anesthesia plan was to use monitored anesthesia care (MAC). Immediately prior to administration of medications, the patient was re-assessed for adequacy to receive sedatives. The heart rate, respiratory rate, oxygen saturations, blood pressure, adequacy of pulmonary ventilation, and response to care were monitored throughout the procedure. The physical status of the patient was re-assessed after the procedure. The Colonoscope was introduced through the anus and advanced to the cecum, identified by appendiceal orifice and ileocecal valve. The colonoscopy was technically difficult and complex due to a tortuous colon. The patient tolerated the procedure well. The quality of the bowel preparation was good. Findings: Hemorrhoids were found on perianal exam. Six sessile polyps were found in the descending colon, splenic flexure and transverse colon. The polyps were diminutive in size. These polyps were removed with a cold snare. Resection and retrieval were complete. Estimated blood loss was minimal. Internal hemorrhoids were found during retroflexion. The hemorrhoids were Grade III (internal hemorrhoids that prolapse but require manual reduction). Impression: - Hemorrhoids found on perianal exam. - Six diminutive polyps in the descending colon, at the splenic flexure and in the transverse colon, removed with a cold snare. Resected and retrieved. - Internal hemorrhoids. Recommendation: - Repeat colonoscopy in 3 years for surveillance. Procedure Code(s): --- Professional --- 16280, Colonoscopy, flexible; with removal of tumor(s), polyp(s), or other lesion(s) by snare technique Diagnosis Code(s): --- Professional --- Z86.010, Personal history of colonic polyps K63.5, Polyp of colon K64.2, Third degree hemorrhoids CPT copyright 2019 [employer]. All rights reserved. The codes documented in this report are preliminary and upon hide or skin buffer review may be revised to meet current compliance requirements. Edwin Alaniz MD Edwin Alaniz MD 12/23/2020 11:24:13 AM Electronically signed by Edwin Alaniz MD Number of Addenda: 0 Note Initiated On: 12/23/2020 10:41 AM Estimated Blood Loss: Estimated blood loss: none.
[2020-12-23 11:53] VITALS: BP 141/79
== END 2020-12-23 11:51 | disposition home or self-care (01) ==
LOC: M OPP 09:04
PROVIDERS: ATTEND Surgery
DX: D12.6 Benign neoplasm of colon, unspecified (principal); Z86.010 Personal history of colon polyps; K64.2 Third degree hemorrhoids; K21.9 Gastro-esophageal reflux disease without esophagitis; F41.9 Anxiety disorder, unspecified; F32.A Depression, unspecified; F43.10 Post-traumatic stress disorder, unspecified; Z86.73 Personal history of transient ischemic attack (TIA), and cerebral infarction without residual deficits; I10 Essential (primary) hypertension; E03.9 Hypothyroidism, unspecified; J44.9 Chronic obstructive pulmonary disease, unspecified; Z88.0 Allergy status to penicillin; Z79.899 Other long term (current) drug therapy

== ENCOUNTER → 2021-01-25 | Outpatient (CLI) | payer MEDICARE ==
[~2021-01-25] MED LIST changes: +FLUO-96 PO; -FLUO10CA16 PO; +FLUO10CA18 PO; -FLUO20CA20 PO; -NS 1,000 ML IV ONE; -OMEP-221 PO; +OMEP40CA5 PO
== END ==
LOC: M RAD 09:05
PROVIDERS: ATTEND Physician Assistant
DX: R10.12 Left upper quadrant pain (principal)

== ENCOUNTER → 2021-02-04 | Outpatient (CLI) | payer MEDICARE ==
[~2021-02-04] MED LIST changes: -FLUO-96 PO; +FLUO10CA16 PO; -FLUO10CA18 PO; +FLUO20CA20 PO; +OMEP-221 PO; -OMEP40CA5 PO
--- NOTE | 2021-02-04 11:04 | REP ---
INDICATION: GASTROPARESIS. COMPARISON: None TECHNIQUE: Real-time sonographic evaluation of the right upper quadrant with Doppler FINDINGS: Multiple ultrasonographic images of the liver show the hepatic parenchymal echo texture to appear unremarkable. There are no focal masses. There is no intrahepatic ductal dilatation. The common bile duct measures 4 mm in its greatest transverse dimension. Multiple ultrasonographic images of the gallbladder show multiple echogenic foci within the gallbladder lumen which casts acoustic shadows. There is no gallbladder wall thickening or pericholecystic edema. Images of the pancreatic region show no gross abnormality. The imaged portion of the right kidney is unremarkable. IMPRESSION: Cholelithiasis. Accredited by the [employer] in General Ultrasound. <Electronically signed by Josh Meza > 02/04/21 1109
== END ==
LOC: M RAD 10:20
PROVIDERS: ATTEND Surgery
DX: K80.80 Other cholelithiasis without obstruction (principal); K31.84 Gastroparesis

== ENCOUNTER → 2021-11-04 | Outpatient (CLI) | payer MEDICARE ==
[~2021-11-04] MED LIST changes: +FLUO-96 PO; -FLUO10CA16 PO; +FLUO10CA18 PO; -FLUO20CA20 PO; -OMEP-221 PO; +OMEP40CA5 PO
== END ==
LOC: M RAD 13:07
PROVIDERS: ATTEND Nurse Practitioner Adult Health
DX: Z12.2 Encounter for screening for malignant neoplasm of respiratory organs (principal); R91.8 Other nonspecific abnormal finding of lung field; Z87.891 Personal history of nicotine dependence

== ENCOUNTER → 2022-02-28 | Outpatient (CLI) | payer MEDICARE ==
[2022-02-28 17:49] LABS: HEMATOCRIT 42.8 % (36.0-47.0); HEMOGLOBIN 13.2 g/dl (12.0-15.5); MEAN CORPUSCULAR HEMOGLOBIN 26.9 pg (27.0-33.0); MEAN CORPUSCULAR HGB CONC 30.8 g/dl (32.0-36.5); MEAN CORPUSCULAR VOLUME 87.2 fl (80.0-96.0); PLATELET COUNT, AUTOMATED 312 10^3/uL (150-450); RED BLOOD COUNT 4.91 10^6/uL (4.00-5.40); WHITE BLOOD COUNT 9.5 10^3/uL (4.0-10.0)
[2022-02-28 18:10] LABS: LIPASE 25 U/L (12-53)
[2022-02-28 18:12] LABS: AMYLASE 37 U/L (30-118)
[2022-02-28 18:13] LABS: ALBUMIN 3.7 G/DL (3.2-5.2); ALKALINE PHOSPHATASE 106 U/L (46-116); ALT/SGPT < 9 U/L (7.0-40); AST/SGOT 15 U/L (<34); BILIRUBIN,TOTAL 0.8 MG/DL (0.3-1.2); BLOOD UREA NITROGEN 10 MG/DL (9-23); CALCIUM LEVEL 9.4 MG/DL (8.3-10.6); CARBON DIOXIDE LEVEL 30 MMOL/L (20-31); CHLORIDE LEVEL 96 MMOL/L (98-107); CREATININE FOR GFR 0.92 MG/DL (0.55-1.30); GLOMERULAR FILTRATION RATE > 60.0 (>39); GLUCOSE, FASTING 99 MG/DL (74-106); POTASSIUM SERUM 3.6 MMOL/L (3.5-5.1); SODIUM LEVEL 136 MMOL/L (136-145); TOTAL PROTEIN 7.4 G/DL (5.7-8.2)
[2022-02-28 18:14] LABS: THYROID STIMULATING HORMONE 6.453 uIU/ML (0.55-4.78)
== END ==
LOC: M PLALAB 16:38
PROVIDERS: ATTEND Nurse Practitioner Adult Health
DX: Z00.00 Encounter for general adult medical examination without abnormal findings (principal); R07.81 Pleurodynia; K21.9 Gastro-esophageal reflux disease without esophagitis; R11.0 Nausea; E89.0 Postprocedural hypothyroidism; J98.11 Atelectasis; I70.0 Atherosclerosis of aorta; I51.7 Cardiomegaly

== ENCOUNTER → 2022-06-22 | Outpatient (REF) | payer MEDICARE ==
[~2022-06-22] MED LIST changes: +ARTIDRO4 OP; -POLYOPD OP
== END ==
LOC: M SFHCPLAZ 16:56
PROVIDERS: ATTEND Physician Assistant
DX: J02.9 Acute pharyngitis, unspecified (principal)

== ENCOUNTER → 2022-09-05 | Outpatient (CLI) | payer MEDICARE ==
[2022-09-05 18:21] LABS: ALBUMIN 3.7 G/DL (3.2-5.2); ALKALINE PHOSPHATASE 101 U/L (46-116); ALT/SGPT < 9 U/L (7.0-40); AST/SGOT 9 U/L (<34); BILIRUBIN,TOTAL 0.5 MG/DL (0.3-1.2); BLOOD UREA NITROGEN 11 MG/DL (9-23); CALCIUM LEVEL 8.8 MG/DL (8.3-10.6); CARBON DIOXIDE LEVEL 28 MMOL/L (20-31); CHLORIDE LEVEL 105 MMOL/L (98-107); CREATININE FOR GFR 0.63 MG/DL (0.55-1.30); GLOMERULAR FILTRATION RATE > 60.0 (>39); GLUCOSE, FASTING 83 MG/DL (74-106); POTASSIUM SERUM 3.6 MMOL/L (3.5-5.1); SODIUM LEVEL 142 MMOL/L (136-145); TOTAL PROTEIN 6.8 G/DL (5.7-8.2)
[2022-09-05 18:23] LABS: THYROID STIMULATING HORMONE 0.037 uIU/ML (0.55-4.78)
== END ==
LOC: M PLALAB 14:51
PROVIDERS: ATTEND Nurse Practitioner Adult Health
DX: E89.0 Postprocedural hypothyroidism (principal); J44.9 Chronic obstructive pulmonary disease, unspecified

== ENCOUNTER → 2022-09-12 | Outpatient (CLI) | payer MEDICARE | LOC: M WHC 15:21 | PROVIDERS: ATTEND Nurse Practitioner Family | DX: Z12.31 Encounter for screening mammogram for malignant neoplasm of breast (principal) ==

== ENCOUNTER → 2022-09-12 | Outpatient (REF) | payer MEDICARE | LOC: M SFHCWAGY 10:25 | PROVIDERS: ATTEND Nurse Practitioner Family | DX: Z12.4 Encounter for screening for malignant neoplasm of cervix (principal); N95.2 Postmenopausal atrophic vaginitis | CPT/HCPCS: 87624; G0123 ==

== ENCOUNTER 2023-03-14 10:14 | Day surgery (SDC) | payer MEDICARE ==
[~2023-03-14] VITALS: Ht 175.3 cm; Wt 65.9 kg
[~2023-03-14 10:14] MED LIST changes: -DOCU-153 PO; +DORZ2SOL5 OP; +NYST1POW9 TOP; +OMEGCAP4 PO; +STOO100C30 PO
[2023-03-14] MEDS: NS 1,000 ML IV ONE (10:34)
[2023-03-14] MEDS ORDERED: fentaNYL 100 MCG/2 ML INJECTION As Ordered ONE (12:41)
[2023-03-14 13:17] VITALS: TEMP 98.6
[2023-03-14] MEDS ORDERED: propofoL 200 MG/20 ML VIAL As Ordered ONE (13:30)
[2023-03-14 13:35] VITALS: BP 116/57; O2SAT 99
== END 2023-03-14 14:05 | disposition home or self-care (01) ==
LOC: M OPP 10:14
PROVIDERS: ATTEND Internal Medicine Gastroenterology
DX: D12.0 Benign neoplasm of cecum (principal); D12.2 Benign neoplasm of ascending colon; D12.4 Benign neoplasm of descending colon; K64.8 Other hemorrhoids; K57.30 Diverticulosis of large intestine without perforation or abscess without bleeding; R12 Heartburn; R13.12 Dysphagia, oropharyngeal phase; R13.11 Dysphagia, oral phase; Z86.73 Personal history of transient ischemic attack (TIA), and cerebral infarction without residual deficits; Z79.1 Long term (current) use of non-steroidal anti-inflammatories (NSAID); Z79.51 Long term (current) use of inhaled steroids; Z79.52 Long term (current) use of systemic steroids; Z79.890 Hormone replacement therapy; Z79.899 Other long term (current) drug therapy; Z88.0 Allergy status to penicillin
CPT/HCPCS: 43235; 45385; 88305; J3010

== ENCOUNTER → 2023-06-14 | Outpatient (CLI) | payer MEDICARE ==
[~2023-06-14] MED LIST changes: +FLUO-290 PO; -FLUO10CA18 PO
== END ==
LOC: M PLALAB 14:34 → M PLAIMG 14:34
PROVIDERS: ATTEND Physician Assistant Medical
DX: R91.8 Other nonspecific abnormal finding of lung field (principal); J06.9 Acute upper respiratory infection, unspecified

== ENCOUNTER → 2023-09-28 | Outpatient (REF) | payer MEDICARE | LOC: M SFHCPLAZ 16:46 | PROVIDERS: ATTEND Physician Assistant Medical | DX: N89.8 Other specified noninflammatory disorders of vagina (principal); R30.0 Dysuria ==

== ENCOUNTER → 2023-11-20 | Outpatient (CLI) | payer MEDICARE ==
[2023-11-20 12:37] LABS: BASO % 0.6 % (0.0-1.0); EOS # 0.4 10^3/uL (0.0-0.5); EOS % 5.1 % (0.0-3.0); HEMATOCRIT 37.1 % (36.0-47.0); HEMOGLOBIN 11.6 g/dl (12.0-15.5); LYMPH # 1.5 10^3/uL (1.5-5.0); LYMPH % 22.3 % (24.0-44.0); MEAN CORPUSCULAR HEMOGLOBIN 26.2 pg (27.0-33.0); MEAN CORPUSCULAR HGB CONC 31.3 g/dl (32.0-36.5); MEAN CORPUSCULAR VOLUME 83.7 fl (80.0-96.0); MONO # 0.6 10^3/uL (0.0-0.8); MONO % 8.2 % (2.0-8.0); NEUTROPHILS # 4.4 10^3/uL (1.5-8.5); NEUTROPHILS % 63.4 % (36.0-66.0); PLATELET COUNT, AUTOMATED 208 10^3/uL (150-450); RED BLOOD COUNT 4.43 10^6/uL (4.00-5.40); WHITE BLOOD COUNT 6.9 10^3/uL (4.0-10.0)
[2023-11-20 13:08] LABS: ALBUMIN 3.3 G/DL (3.2-5.2); ALKALINE PHOSPHATASE 103 U/L (46-116); ALT/SGPT 11 U/L (7.0-40); AST/SGOT < 8 U/L (<34); BILIRUBIN,TOTAL 0.4 MG/DL (0.3-1.2); BLOOD UREA NITROGEN 15 MG/DL (9-23); CALCIUM LEVEL 9.2 MG/DL (8.3-10.6); CARBON DIOXIDE LEVEL 30 MMOL/L (20-31); CHLORIDE LEVEL 108 MMOL/L (98-107); GLOMERULAR FILTRATION RATE > 60.0 (>39); GLUCOSE, FASTING 86 MG/DL (74-106); POTASSIUM SERUM 4.2 MMOL/L (3.5-5.1); SODIUM LEVEL 141 MMOL/L (136-145); TOTAL PROTEIN 6.8 G/DL (5.7-8.2)
== END ==
LOC: M RAD 11:39
PROVIDERS: ATTEND Physician Assistant Medical
DX: J06.9 Acute upper respiratory infection, unspecified (principal); R50.9 Fever, unspecified

== ENCOUNTER → 2024-02-26 | Outpatient (REF) | payer MEDICARE ==
[~2024-02-26] MED LIST changes: +NYST1POW3 TOP; -NYST1POW9 TOP; +POTA10807 PO; -POTA10808 PO
== END ==
LOC: M SFHCPLAZ 15:13
PROVIDERS: ATTEND Nurse Practitioner Adult Health
DX: R09.81 Nasal congestion (principal)

== ENCOUNTER → 2024-08-07 | Outpatient (CLI) | payer MEDICARE ==
[2024-08-08 12:02] LABS: PLATELET COUNT, AUTOMATED 265 10^3/uL (150-450)
[2024-08-08 12:37] LABS: ALT/SGPT 20.0 U/L (7.0-40); AST/SGOT 24.0 U/L (<34); CALCIUM LEVEL 9.0 MG/DL (8.3-10.6); CARBON DIOXIDE LEVEL 30.0 MMOL/L (20-31); CHLORIDE LEVEL 103.0 MMOL/L (98-107); CREATININE FOR GFR 0.76 MG/DL (0.55-1.30); GLOMERULAR FILTRATION RATE 81.7 (>39); POTASSIUM SERUM 5.6 MMOL/L (3.5-5.1); SODIUM LEVEL 140.0 MMOL/L (136-145)
[2024-08-08 12:42] LABS: FREE T4 0.59 NG/DL (0.89-1.76)
== END ==
LOC: M PLALAB 16:37
PROVIDERS: ATTEND Nurse Practitioner Adult Health
DX: J44.9 Chronic obstructive pulmonary disease, unspecified (principal); E89.0 Postprocedural hypothyroidism; K21.9 Gastro-esophageal reflux disease without esophagitis

== ENCOUNTER → 2024-10-18 | Outpatient (CLI) | payer MEDICARE ==
[2024-10-18 15:23] LABS: ALT/SGPT 12 U/L (7.0-40); AST/SGOT 17 U/L (<34); CALCIUM LEVEL 9.3 MG/DL (8.3-10.6); CARBON DIOXIDE LEVEL 28 MMOL/L (20-31); CHLORIDE LEVEL 107 MMOL/L (98-107); CREATININE FOR GFR 0.66 MG/DL (0.55-1.30); GLOMERULAR FILTRATION RATE > 90.0 (>39); POTASSIUM SERUM 3.4 MMOL/L (3.5-5.1); SODIUM LEVEL 146 MMOL/L (136-145)
== END ==
LOC: M PLALAB 12:32
PROVIDERS: ATTEND Nurse Practitioner Adult Health
DX: J44.9 Chronic obstructive pulmonary disease, unspecified (principal)

== ENCOUNTER → 2024-11-11 | Outpatient (CLI) | payer MEDICARE | LOC: M PLAIMG 15:09 → M PLALAB 15:09 | PROVIDERS: ATTEND Psychiatry & Neurology Neurology | DX: S15.8XXA Injury of other specified blood vessels at neck level, initial encounter (principal); X58.XXXA Exposure to other specified factors, initial encounter; Y92.9 Unspecified place or not applicable; Y93.9 Activity, unspecified; Y99.9 Unspecified external cause status; M47.812 Spondylosis without myelopathy or radiculopathy, cervical region ==

== ENCOUNTER → 2024-11-27 | Outpatient (CLI) | payer MEDICARE | LOC: M RAD 13:53 | PROVIDERS: ATTEND Psychiatry & Neurology Neurology | DX: Z18.10 Retained metal fragments, unspecified (principal); S02.31XD Fracture of orbital floor, right side, subsequent encounter for fracture with routine healing ==

== ENCOUNTER 2024-12-16 13:26 | Emergency (ER) | payer MEDICARE ==
[~2024-12-16] VITALS: Ht 170.2 cm; Wt 68.0 kg
[2024-12-16 14:51] LABS: BASO # 0.0 10^3/uL (0.0-0.2); BASO % 0.6 % (0.0-1.0); EOS # 0.3 10^3/uL (0.0-0.5); EOS % 5.8 % (0.0-3.0); LYMPH # 1.7 10^3/uL (1.5-5.0); LYMPH % 35.6 % (24.0-44.0); MONO # 0.5 10^3/uL (0.0-0.8); MONO % 10.6 % (2.0-8.0); NEUTROPHILS # 2.2 10^3/uL (1.5-8.5); NEUTROPHILS % 47.2 % (36.0-66.0); PLATELET COUNT, AUTOMATED 272 10^3/uL (150-450)
[2024-12-16 15:20] LABS: KETONE, URINE AUTO RFX TRACE mg/dL (NEGATIVE); LEUKOCYTE ESTERASE UR AUTO RFX NEGATIVE (NEGATIVE); MUCUS, URINE RFX SMALL (NEGATIVE); NITRITE, URINE AUTO RFX NEGATIVE (NEGATIVE); RBC, URINE AUTO RFX 1 /HPF (0-3); SQUAM EPITHELIAL CELL UR AURFX 0 /HPF (0-6); WBC, URINE AUTO RFX 1 /HPF (0-3)
[2024-12-16 15:31] LABS: ALT/SGPT 12 U/L (7.0-40); AST/SGOT 20 U/L (<34); CALCIUM LEVEL 8.5 MG/DL (8.3-10.6); CARBON DIOXIDE LEVEL 28 MMOL/L (20-31); CHLORIDE LEVEL 106 MMOL/L (98-107); CREATININE FOR GFR 0.68 MG/DL (0.55-1.30); GLOMERULAR FILTRATION RATE > 90.0 (>39); POTASSIUM SERUM 4.4 MMOL/L (3.5-5.1); SODIUM LEVEL 143 MMOL/L (136-145)
[2024-12-16] MEDS ORDERED: ISOVUE-370 76% 100 ML VIAL As Ordered ONE (20:15)
[2024-12-16] MEDS: KETOROLAC 30 MG/ML 1 ML VIAL IV ONE (21:24)
[2024-12-16 21:42] VITALS: BP 130/62; TEMP 97.1; O2SAT 97
== END 2024-12-16 22:10 | disposition home or self-care (01) ==
LOC: M ED 13:26
DX: R10.9 Unspecified abdominal pain (principal); K76.0 Fatty (change of) liver, not elsewhere classified; I25.84 Coronary atherosclerosis due to calcified coronary lesion; M16.0 Bilateral primary osteoarthritis of hip; I10 Essential (primary) hypertension; K21.9 Gastro-esophageal reflux disease without esophagitis; F43.10 Post-traumatic stress disorder, unspecified; J44.9 Chronic obstructive pulmonary disease, unspecified; Z86.79 Personal history of other diseases of the circulatory system; Z88.0 Allergy status to penicillin; Z79.899 Other long term (current) drug therapy
CPT/HCPCS: 74177; 80048; 80076; 81001; 83690; 85025; 96374; 99283; J1885; Q9967

== ENCOUNTER 2024-12-25 14:36 | Inpatient (IN) | payer MEDICARE ==
[~2024-12-25] VITALS: Ht 175.3 cm; Wt 65.7 kg
[~2024-12-25 14:36] MED LIST changes: -DORZ2SOL5 OP; +DORZ2SOL5 OU
[2024-12-25 15:39] LABS: PLATELET COUNT, AUTOMATED 285 10^3/uL (150-450)
[2024-12-25 16:01] LABS: AMPHETAMINES LEVEL URINE NEGATIVE (NEGATIVE); BARBITURATES URINE NEGATIVE (NEGATIVE); CANNABINOIDS URINE NEGATIVE (NEGATIVE); COCAINE METABOLITE URINE NEGATIVE (NEGATIVE); METHADONE URINE NEGATIVE (NEGATIVE); OPIATES URINE NEGATIVE (NEGATIVE); PHENCYCLIDINE URINE NEGATIVE (NEGATIVE)
[2024-12-25 16:03] LABS: ETHYL ALCOHOL (ETHANOL) < 0.003 % (0.000-0.010)
[2024-12-25 16:05] LABS: ALT/SGPT 19 U/L (7.0-40); AST/SGOT 29 U/L (<34); CALCIUM LEVEL 9.0 MG/DL (8.3-10.6); CARBON DIOXIDE LEVEL 26 MMOL/L (20-31); CHLORIDE LEVEL 106 MMOL/L (98-107); CREATININE FOR GFR 0.63 MG/DL (0.55-1.30); GLOMERULAR FILTRATION RATE > 90.0 (>39); POTASSIUM SERUM 4.1 MMOL/L (3.5-5.1); SALICYLATE LEVEL < 3.0 MG/DL (<30); SODIUM LEVEL 142 MMOL/L (136-145)
[2024-12-25 16:06] LABS: BENZODIAZEPINES URINE POSITIVE (NEGATIVE)
[2024-12-25 19:39] LABS: FREE T4 1.55 NG/DL (0.89-1.76)
[2024-12-25] MEDS ORDERED: LEVO150T7 PO (19:45)
[2024-12-25] MEDS ORDERED: HOME MED LIST COMPLETE! XX SCH (19:50)
[2024-12-25] MEDS ORDERED: LORazepam 1 MG TAB PO PRN (20:25)
[2024-12-25] MEDS ORDERED: MOM 30 ML SUSPENSION UDC PO PRN (20:25)
[2024-12-25] MEDS ORDERED: MAALOX 30 ML SUSP *UDC PO PRN (20:25)
[2024-12-25] MEDS ORDERED: traZODone 50 MG TAB PO PRN (20:25)
[2024-12-25] MEDS ORDERED: TEMAZEPAM 15 MG CAP PO PRN (20:25)
[2024-12-25] MEDS ORDERED: HALOPERIDOL 5 MG TAB PO PRN (20:25)
[2024-12-25] MEDS: DORZOLAMIDE/TIMOLOL 10 ML OPHTHALMIC SOLN OU SCH (21:00)
[2024-12-25 21:56] VITALS: BP 137/78; TEMP 96.4; O2SAT 97
[2024-12-26] MEDS: clonazePAM 0.5 MG TAB PO PRN ×2 (00:50→21:48)
[2024-12-26] MEDS: TEMAZEPAM 7.5 MG CAP PO PRN ×2 (00:51→21:49)
[2024-12-26] MEDS: IBUPROFEN 400 MG TAB PO PRN (00:58)
[2024-12-26] MEDS: LEVOTHYROXINE 150 MCG TABLET (0.15 MG) PO SCH (06:04)
[2024-12-26 06:15] VITALS: BP 154/76; TEMP 97.7; O2SAT 98
[2024-12-26] MEDS: FLUoxetine 20 MG CAP PO SCH (09:41)
[2024-12-26] MEDS: OMEPRAZOLE 20MG CAP PO SCH (10:57)
[2024-12-26 11:55] LABS: KETONE, URINE AUTO RFX 1+ mg/dL (NEGATIVE); LEUKOCYTE ESTERASE UR AUTO RFX NEGATIVE (NEGATIVE); MUCUS, URINE RFX LARGE (NEGATIVE); NITRITE, URINE AUTO RFX NEGATIVE (NEGATIVE); RBC, URINE AUTO RFX 2 /HPF (0-3); SQUAM EPITHELIAL CELL UR AURFX 2 /HPF (0-6); WBC, URINE AUTO RFX 2 /HPF (0-3)
[2024-12-26 16:28] VITALS: BP 128/71; TEMP 98.2; O2SAT 98
[2024-12-26] MEDS: DIVALPROEX 125 MG TAB PO SCH (21:00)
[2024-12-27 00:13] VITALS: BP 128/71; TEMP 98.2; O2SAT 98
[2024-12-27] MEDS: LEVOTHYROXINE 100 MCG TABLET (0.1 MG) PO SCH (05:57)
[2024-12-27 15:41] VITALS: BP 111/61; TEMP 98; O2SAT 97
[2024-12-28 06:22] VITALS: BP 124/68; TEMP 96.9; O2SAT 98
[2024-12-28] MEDS: ACETAMINOPHEN 325 MG TAB PO PRN (08:53)
[2024-12-28 09:05] VITALS: BP 142/80; TEMP 97.3; O2SAT 98
[2024-12-28 15:20] VITALS: BP 140/66; TEMP 97.8; O2SAT 98
[2024-12-29 06:25] VITALS: BP 148/90; TEMP 97.3; O2SAT 97
[2024-12-29 15:26] VITALS: BP 109/66; TEMP 98.2; O2SAT 98
[2024-12-29] MEDS: POLYVINYL ALCOHOL OPHTH SOLN 15ML (LIQUITEARS) OU PRN (17:06)
[2024-12-29] MEDS: DORZOLAMIDE/TIMOLOL 10 ML OPHTHALMIC SOLN OU SCH (21:00)
[2024-12-30 06:39] VITALS: BP 173/84; TEMP 96.5; O2SAT 94
[2024-12-30] MEDS ORDERED: LEVO100T5 PO (09:12)
== END 2024-12-30 16:10 | disposition home or self-care (01) | DRG 885 ==
LOC: M ED 14:36 → M ED INP 20:21 → M PSY 22:02
PROVIDERS: ADMIT Psychiatry & Neurology Neurology; ATTEND Psychiatry & Neurology Neurology
DX: F39 Unspecified mood [affective] disorder (principal); R45.851 Suicidal ideations; F43.10 Post-traumatic stress disorder, unspecified; R45.850 Homicidal ideations; G47.00 Insomnia, unspecified; F17.290 Nicotine dependence, other tobacco product, uncomplicated; E03.9 Hypothyroidism, unspecified; K21.9 Gastro-esophageal reflux disease without esophagitis; Z79.899 Other long term (current) drug therapy; D64.9 Anemia, unspecified; Z91.410 Personal history of adult physical and sexual abuse; Z88.0 Allergy status to penicillin; Z81.8 Family history of other mental and behavioral disorders; Z79.890 Hormone replacement therapy

== ENCOUNTER → 2025-01-14 | Outpatient (REF) | payer MEDICARE ==
[~2025-01-14] MED LIST changes: +LEVO150T7 PO
== END ==
LOC: M SFHCPLAZ 16:46
PROVIDERS: ATTEND Nurse Practitioner Adult Health
DX: R30.0 Dysuria (principal)